=== PATIENT | male | born 1935 | race Caucasian/White ===

== ENCOUNTER 2016-11-30 12:02 | Observation (INO) | payer BC ==
[~2016-11-30] VITALS: Ht 175.3 cm; Wt 90.5 kg
[~2016-11-30 12:02] MED LIST: AGM875 PO; LRT5 PO
[2016-11-30 13:03] VITALS: BP 175/69; PULSE 47; TEMP 36.5; O2SAT 96; BMI 29.0
[2016-11-30] MEDS ORDERED: KEFZOL SPECIAL PROCEDURE STOCK 1 GM ADDVIAL IV ONE (13:04)
[2016-11-30] MEDS ORDERED: SERT50TA PO (13:23)
[2016-11-30] MEDS ORDERED: FLUT0.15 INTNAS (13:23)
[2016-11-30] MEDS ORDERED: LISI20TA3 PO (13:23)
[2016-11-30] MEDS ORDERED: INDO-22 PO (13:23)
[2016-11-30] MEDS ORDERED: TRMCR130WC (13:23)
[2016-11-30] MEDS ORDERED: CLR10 PO (13:23)
[2016-11-30] MEDS ORDERED: SIMV10TA5 PO (13:23)
[2016-11-30] MEDS ORDERED: FELO5TAB PO (13:23)
[2016-11-30] MEDS ORDERED: LDXCR30 (13:24)
[2016-11-30] MEDS ORDERED: [UNRECOGNIZED DRUG - CODE] (13:24)
[2016-11-30] MEDS ORDERED: OMEG10007 PO (13:24)
[2016-11-30] MEDS ORDERED: ASPI81TA28 PO (13:24)
[2016-11-30] MEDS ORDERED: FLUO0.0220 (13:24)
[2016-11-30] MEDS ORDERED: CLBPO15 TOP (13:24)
--- NOTE | 2016-11-30 14:05 | History & Physical Bridge Note ---
H&P Re-Evaluation Bridge Note: I have examined the patient, reviewed the History & Physical and in the interval since the performance of the History & Physical I have noted the following changes of clinical significance: No changes noted
--- NOTE | 2016-11-30 14:06 | Procedure Note ---
Pre-Mod Sedation Assessment General Date of Moderate Sedation: Nov 30, 2016. Vital Signs: Vital Signs Past 12 Hours Date Time Temp Pulse Resp B/P (MAP) Pulse Ox O2 Delivery O2 Flow Rate FiO2 11/30/16 13:03 36.5 47 15 175/69 96 Room Air Review Cardiovascular: no edema, no murmur, + bradycardia Abdomen: soft Lungs: lungs clear Airway Class: II Pre-Sedation Airway Assessment Oral Cavity: WNL Short Thick Neck: No Hx of Sleep Apnea: No Smoking Status: Never Smoker Mallampati Classification: Class II ASA Classification: Class II Procedure Planning Contraindications-for Mod Sed: None Yes Notes The planned sedation has been discussed with the patient and consent obtained. I have identified the patient, determined the appropriateness of sedation and have assessed the patient immediately prior to the procedure. All medicine(s) and interventions are by my order.
[2016-11-30] MEDS ORDERED: LIDOCAINE HCL 1% 20 ML VIAL ONE (14:28)
[2016-11-30] MEDS ORDERED: BUPIVACAINE 0.5 % 5 MG/1 ML MPF 30ML VIAL ONE (14:28)
[2016-11-30] MEDS ORDERED: MIDAZOLAM HCL 5 MG/ML 1 ML VIAL ONE (14:28)
[2016-11-30] MEDS ORDERED: FENTANYL CITRATE INJ 50 MCG/1 ML 2 ML VIAL ONE (14:29)
[2016-11-30] MEDS ORDERED: BACITRACIN 50000 UNIT VIAL ONE (14:29)
[2016-11-30] MEDS ORDERED: HydrALAZINE HCL 20 MG/ML VIAL ONE (14:47)
[2016-11-30 15:06] LABS: HEMATOCRIT 46.8 % (42-52); MEAN CELL VOLUME 96.9 fL (80-100); MEAN CORPUSCULAR HEMOGLOBIN 33.7 pg (25-34); MEAN PLATELET VOLUME 11.4 fL (7.4-10.4); PLATELET COUNT 188 K/uL (130-400); RED BLOOD COUNT 4.83 M/uL (4.7-6.1); WHITE BLOOD COUNT 7.47 K/uL (4.8-10.8)
[2016-11-30 15:35] LABS: BUN/CREATININE RATIO 14.9 (10-20); CALCIUM 8.9 mg/dl (8.5-10.1); CREATININE 0.86 mg/dl (0.60-1.40); MEAN CORPUSCULAR HGB CONC 34.8 g/dl (32-36); POTASSIUM 3.9 mmol/L (3.5-5.1)
--- NOTE | 2016-11-30 15:53 | Discharge Instructions ---
Discharge Instructions Date of Service Nov 30, 2016. Admission Reason for Admission: Heart Block Discharge Discharge Diagnosis / Problem: complete heart block s/p dual chamber permanent pacemaker Discharge Goals Goal(s): Improve function Activity Recommendations Activity Limitations: as noted below Lifting Limitations: no more than 10 pounds (do not lift more than 10 pounds with the left arm for 2 weeks; do not lift the left shoulder over the left arm for 4 weeks) May Resume Sexual Activity: after one week Shower/Bathe: tomorrow Driving or Machine Use: resume 1 day after discharge . Instructions / Follow-Up Instructions / Follow-Up ACTIVITY RECOMMENDATIONS: * Do not raise affected arm over head for 4 weeks. SPECIAL CARE INSTRUCTIONS: * If bleeding occurs, apply direct pressure to area for 5 minutes. * Call your doctor if you have severe pain, fever, drainage or bleeding at site. * Keep dry for 24 hours. * Keep any scheduled doctor's appointment. * Implant Card - hand held device with website information given. SKIN IRRITATION: * You may experience some redness and/or swelling in the area where radiation was administered. If any skin irritation occurs, please contact your family physician. FOLLOW UP VISIT: Keep any scheduled doctor appointments. Current Hospital Diet Patient's current hospital diet: AHA Diet (Heart Healthy) Discharge Diet Recommended Diet: AHA Diet (Heart Healthy) Procedures Procedures Performed: dual chamber rate responsive permanent pacemaker with peripheral venogram Pending Studies Studies pending at discharge: no Medical Emergencies . Who to Call and When: Medical Emergencies: If at any time you feel your situation is an emergency, please call 911 immediately. . Non-Emergent Contact Non-Emergency issues call your: Cap Lining Machine Operator . . "Provider Documentation" section prepared by Emelyn Elias. . Integrated Logistics Support Manager Recommendations Integrated Logistics Support Manager Recommendations Increase felodipine to 7.5 mg daily. Lexiscan nuclear stress test as outpatient. Follow-up for pacemaker and wound check in one week. VTE Core Measure Inpt VTE Proph given/why not?: Treatment not indicated
--- NOTE | 2016-11-30 15:54 | Procedure Note ---
Post-Mod Sedation Assessment General Date of Moderate Sedation Nov 30, 2016. Vital Signs: Vital Signs Past 12 Hours Date Time Temp Pulse Resp B/P (MAP) Pulse Ox O2 Delivery O2 Flow Rate FiO2 11/30/16 15:45 59 18 165/85 (111) 97 Mask 3 11/30/16 13:03 36.5 47 15 175/69 96 Room Air Review - Discharge Criteria Vital Signs Stable: Yes Alert/Oriented/Conversant: Yes Returned to Baseline Mental St: Yes Nausea Absent/Minimal: Yes Pain/Discomfort/Absent/Minimal: Yes Normal/Baseline Respirations: Yes Active Bleeding?: No Pt Received D/C Instructions: N/A Prescriptions Given: None Specific Proced. D/C Criteria Distal Pulses Present (Cardiac: N/A Groin site assessed-Card Cath: N/A Voided Prior To Discharge: N/A Discharged Patients Adult Escort/Transportation: N/A
--- NOTE | 2016-11-30 15:55 | [facility] Post Operative Brief Note ---
Immediate Operative Summary Operative Date Nov 30, 2016. Pre-Operative Diagnosis chb Post-Operative Diagnosis dame Procedure(s) Performed dual chamber rate responsive permanent pacemaker with peripheral venogram Surgeon danny moore Funeral Service Manager Surgeon(s) none Estimated Blood Loss <5cc Findings see official report Fluids (cc crystalloids) 250vv Specimens none Drains none Anesthesia 3mg versed and 75mcg fentanyl Complication(s) None Disposition PCU
--- NOTE | 2016-11-30 15:58 | Discharge Summary ---
Discharge Summary Date of Service Nov 30, 2016. Discharge Summary Admission Date: 11/30/2016 Discharge Date: Dec 01, 2016 Discharge Disposition: Home Principal Diagnosis: complete heart block s/p dual chamber permanent pacemaker Secondary Diagnoses/Problems: snd rbbb lafb htn hld Procedures: dual chamber rate responsive permanent pacemaker with peripheral venogram Medication Reconciliation Continued Medications: Aspirin (Aspirin Ec) 81 Mg Tab 81 MG PO DAILY Clobetasol Propionate (Clobetasol Propionate) 45 Appln/15 Gm Oint 1 APPLN TOP BID for 7 Days, #15 GM Felodipine (Plendil) 5 Mg Tabcr 5 MG PO DAILY, TAB Fish Oil (Plover-3) 1 Ea Cap 1 CAP PO DAILY, CAP Fluocinonide (Lidex 0.05% Cream) 90 Appln/30 Gm Cr Fluorouracil (Topical) (Fluorouracil) 0.5 % Cre Fluticasone Propionate (Nasal) (Flonase Allergy Relief) 50 Mcg/Act Spr 2 SPRY INTNAS DAILY Indomethacin (Indocin) 25 Mg Cap 25 MG PO TID, CAP Ketoconazole (Topical) (Nizoral A-D) 1 % Sha Lisinopril (Prinivil) 20 Mg Tab 20 MG PO DAILY, TAB Loratadine (Claritin) 10 Mg Tab 10 MG PO DAILY, TAB Sertraline (Zoloft) 50 Mg Tab 1 TAB PO DAILY for 30 Days, #30 TAB 2 Refills Simvastatin (Zocor) 10 Mg Tab 1 TAB PO HS for 30 Days, #30 TAB 5 Refills Triamcinolone Acet (Aristocort 0.1%) 90 Appln/30 Gm Cr Admission Information Physical Exam (per Admitting): aaox3, NAD NC/AT, EOMI Supple, No JVD Irregular S1/S2 bradycardic, no murmur CTA B/L no w/r/r soft NT/ND no edema b/l LE No focal deficits skin intact Hospital Course Pt admitted for urgent permanent pacemaker secondary to complete heart block. Underwent procedure without any complications. Monitored overnight. On postoperative day one patient developed chest discomfort after receiving a dose of intravenous hydralazine. Cardiac enzymes were not significantly elevated. A stat resting 2-D transthoracic echo performed at the bedside demonstrated normal wall motion with preserved LV systolic function. There is no evidence of pericardial effusion. Repeat chest x-ray demonstrated stable pacemaker lead placement. No pneumothorax. The patient was observed for an additional night. His symptoms resolved. It came to light during hospitalization at the patient drinks moderate to excessive amounts of alcohol at home. Elevated blood pressure readings were noted likely due to mild withdrawal as well as anxiety. No delirium or tremors. On the day of discharge the patient was feeling well without chest pain or shortness of breath. He will be scheduled for outpatient Lexiscan nuclear stress test. Felodipine increased to 7.5 mg daily. Total time spent on discharge = 45minutes This includes examination of the patient, discharge planning, medication reconciliation, and communication with other providers. Discharge Instructions ACTIVITY RECOMMENDATIONS: * Do not raise affected arm over head for 4 weeks. SPECIAL CARE INSTRUCTIONS: * If bleeding occurs, apply direct pressure to area for 5 minutes. * Call your doctor if you have severe pain, fever, drainage or bleeding at site. * Keep dry for 248 hours. * Keep any scheduled doctor's appointment. * Implant Card - hand held device with website information given. SKIN IRRITATION: * You may experience some redness and/or swelling in the area where radiation was administered. If any skin irritation occurs, please contact your family physician. FOLLOW UP VISIT: Keep any scheduled doctor appointments.
[2016-11-30 16:15] VITALS: BP 163/75; PULSE 62; TEMP 36.3; O2SAT 96; Ht 175.3 cm; Wt 90.5 kg
--- NOTE | 2016-11-30 16:19 | [facility] Operative Report ---
Operative Report Operative Date Nov 30, 2016. Pre-Operative Diagnosis chb Post-Operative Diagnosis dame Procedure(s) Performed dual chamber rate responsive permanent pacemaker with peripheral venogram Surgeon emelyn elias Wood Cutter Surgeon(s) none Estimated Blood Loss <5cc Findings DATE OF OPERATION: 11/30/2016 PREOPERATIVE DIAGNOSIS: Complete heart block, SND POSTOPERATIVE DIAGNOSIS: Complete heart block, SND PROCEDURE: Dual chamber rate responsive permanent pacemaker under fluoroscopic guidance along with peripheral venogram SURGEON: Dr. Emelyn Elias. TEMPORARY STAFF ACCOUNTANT: None. ANESTHESIA: Monitored and a conscious sedation given under my supervision, administered by Diony Lei. Start time 15:06. End time: 15:45. A total of 3 mg of Versed, 75 mcg of fentanyl. INTRAVENOUS FLUIDS: 250 mL. BLOOD LOSS: <10 mL. COMPLICATIONS: None. CONDITION: Stable. URINE OUTPUT: Not available. SPECIMENS: None. FINDINGS: None. DRAINS: None. INDICATIONS: This is an 81-year-old gentleman with past medical history complete heart block, SND, RBBB, LAFB, HTN, HLD. Pt was in our office today for exercise echocardiogram stress test when 1 minute into exercise he went into complete heart block. He was recommend urgent permanent pacemaker today. CONSENT: Consent was obtained prior to the patient going into the electrophysiology lab. The patient was informed of the risks, benefits and alternatives to the procedure. Risks include, but not limited to sudden cardiac , cardiac arrhythmias , cerebrovascular accident, myocardial infarction, injury to the blood vessels, chamber of the heart, lungs, bleeding and infection. The patient understood these risks and agreed to have the procedure as planned. Informed consent was obtained. DESCRIPTION OF THE PROCEDURE: The patient was brought into the electrophysiology lab in fasting state, he was connected to continuous cardiac surgeon. A time-out was performed to ensure the patient identity and procedure correctly. The patient was prepped and draped over the left infraclavicular space in normal surgical standard fashion. He received prophylactic antibiotics prior to incision. Monitored conscious sedation was given throughout the procedure for the patient's comfort level. Lostant precautions were maintained throughout the procedure. A 10 mL of 1% lidocaine and bupivacaine mixture were given in the left deltopectoral groove. Incision was made in the left deltopectoral groove. Blunt dissection was performed then to identify the cephalic vein. However known identified. So a peripheral venogram was performed using 10cc contrast diluted in 10cc of saline followed by a 10cc flush. The axillary vein was identified and venous axis was obtained with needle stick. A guidewire was inserted without any resistance. An 8-Iraqi sheath was inserted over the guidewire without any resistance. The dilator was removed and a second guidewire was inserted through the 8-Iraqi sheath without any resistance. The sheath was removed, flushed and dilator reinserted over it and then the sheath was reinserted over one of the guidewires without any resistance. The guidewire and dilator were removed and the right ventricular pacing lead was advanced into the right ventricle apex under fluoroscopic guidance; there was adequate pacing and sensing thresholds and no diaphragmatic stimulation with high output pacing. The sheath was peeled away and lead was fixated to pectoralis muscle using 0 silk suture. A second 8-Iraqi sheath was advanced over the retained guidewire without any resistance. The guidewire and dilator were removed. The right atrial pacing lead was advanced into the right atrium and positioned the right atrial appendage into the under fluoroscopic guidance. There was adequate pacing and sensing thresholds and no diaphragmatic stimulation with high output pacing. The 8-Iraqi sheath was peeled away and lead was fixated to pectoralis muscle using 0 silk suture. There was back bleeding from the venous puncture site, so a 2-0 Vicryl pursestring was placed around the vein to prevent any further back bleeding. Another 10 mL of 1% lidocaine were given in the pectoralis fascia and then using blunt dissection, then the pectoralis fascia over the pectoralis muscle, a pacemaker pocket was created. The pocket was flushed with copious amounts of bacitracin and saline wash and inspected for hemostasis. The pulse generator was then attached to the leads making sure that the pins were in appropriate position passed the set screws and the set screws were all tightened. The pulse generator was then placed in the pocket, making sure that the leads were lying flat beneath the device and a stay stitch using 0 silk suture was used to secure the device to the pectoralis muscle. Incision was closed in 3-layer fashion using a 2-0 Vicryl interrupted suture followed by 3-0 Vicryl suture followed by a 4-0 Monocryl stitch and then Dermabond was applied. EQUIPMENT: 1. Pulse generator is a [employer] [id number], serial number [id number]. 2. Right atrial lead Medtronic 5076-52 cm, serial number [id number]. 3. Right ventricular lead Medtronic 5076-58 cm, serial number [id number]. INTRAOPERATIVE TESTIN. Right atrial lead: P-wave is 6.9 millivolts, impedance 711 ohms, threshold 0.5 volts at 0.7 milliamps. 2. Right ventricular lead: R-wave is 15.8 millivolts, impedance 864 ohms, threshold 0.4 volts at 0.4 milliamps. FINAL MEASUREMENTS THROUGH THE DEVICE: 1. P-wave is 4.9 millivolts, impedance 589 ohms, threshold 0.5 volts at 0.4 milliseconds. 2. Right ventricular lead: R-wave is 20 millivolts, impedance 665 ohms, threshold 0.5 volts at 0.4 milliseconds. FINAL PARAMETERS: 1. MVP-R 60/130. Right atrial amplitude 3.5 volts, pulse width 0.4 milliseconds, sensitivity 0.3 millivolts. 2. Right ventricular amplitude 3.5 volts, pulse width 0.4 milliseconds, sensitivity 1.2 millivolts. IMPRESSION: Successful implantation of a dual chamber rate responsive permanent pacemaker under fluoroscopic guidance secondary to complete heart block and SND. PLAN: Monitor the patient overnight, 12-lead EKG. His BP is on the high side probably because he did not take his medications today. He is not allowed to lift the left elbow or the left shoulder for 1 month. He cannot lift more than 10 pounds with the left arm for 2 weeks. He can shower tomorrow, let water run over the incision, do not scrub it. He should follow up in our Device Clinic in 7-10 days for device and wound check. Fluids 250vv Specimens none Drains none Anesthesia 3mg versed and 75mcg fentanyl Disposition PCU I attest to the content of the Intraoperative Record and any orders documented therein. Any exceptions are noted below.
[2016-11-30] MEDS: ACETAMINOPHEN 325 MG TAB PO PRN (18:17)
[2016-11-30] MEDS ORDERED: NURSING VERBAL MED ORDER ONE (18:45)
[2016-11-30] MEDS ORDERED: IV FLUIDS COMPLETED PRN (18:45)
[2016-11-30] MEDS ORDERED: HydrALAZINE HCL 20 MG/ML VIAL IV. PRN (19:00)
[2016-11-30] MEDS ORDERED: OXYCODONE/ACETAMINOPHEN 5-325 TAB PO PRN (19:00)
[2016-11-30] MEDS ORDERED: LISINOPRIL 10 MG TAB PO ONE (19:00)
[2016-11-30 19:33] VITALS: BP 161/77; PULSE 67; TEMP 36.2; O2SAT 93
[2016-11-30] MEDS: SIMVASTATIN 10 MG TAB PO SCH (20:58)
[2016-11-30] MEDS ORDERED: INDOMETHACIN 25 MG CAP PO PRN (21:00)
[2016-11-30 23:33] VITALS: BP 138/81; PULSE 60; TEMP 36.8; O2SAT 93
[2016-12-01] VITALS (9 sets, daily range): BP systolic 140–184; BP diastolic 65–83; PULSE 60–76; TEMP 36.5–37.3; O2SAT 93–96
[2016-12-01] MEDS: ACETAMINOPHEN 325 MG TAB PO PRN (03:50)
--- NOTE | 2016-12-01 07:07 | DIAGNOSTIC IMAGING REPORT ---
CHEST 2 VIEWS ROUTINE CLINICAL HISTORY: EXACT TIME ORDERED Evaluate for pneumothorax and lead placement COMPARISON STUDY: No previous studies for comparison. FINDINGS: Permanent bipolar cardiac pacemaker. Leads are in good position. No evidence pneumothorax. Diaphragms are smooth. IMPRESSION: Bipolar cardiac pacemaker good position. No evidence of pneumothorax. The above report was generated using voice recognition software. It may contain grammatical, syntax or spelling errors. Electronically signed by: Duncan Farrell M.D. 12/01/2016 7:05 AM Dictated Date/Time: 12/01/2016 7:05 AM
[2016-12-01] MEDS: LISINOPRIL 20 MG TAB PO SCH (08:05)
[2016-12-01] MEDS: SERTRALINE HCL 50 MG TAB PO SCH (08:06)
[2016-12-01] MEDS: ASPIRIN 81 MG ECTAB PO SCH (08:06)
[2016-12-01] MEDS: LORATADINE 10 MG TAB PO SCH (08:07)
[2016-12-01] MEDS ORDERED: FELODIPINE 5 MG TABCR PO SCH (09:00)
--- NOTE | 2016-12-01 11:29 | Cardiology Follow-Up ---
Subjective General Date of Service: Dec 01, 2016. Pt evaluation today including: conversation w/ patient, conversation w/ family , physical exam, chart review, lab review, review of studies, review of inpatient medication list History of Present Illness The patient is a 81 year old male seen in follow-up. Tolerated procedure without complication. Blood pressure elevated. Denies chest pain or shortness of breath. Atrial paced on telemetry. Normal pacemaker function per interrogation this morning. Allergies Coded Allergies: Hydralazine (Verified Allergy, Severe, GI SYMPTOMS, 12/02/16) chest pain, nausea, htn Social History Smoking Status: Unknown if Ever Smoked Hx Tobacco Use In Past Year?: Yes Hx Alcohol Use - Type And Amou: Yes (1 beer and small amt of whisky/day) Hx Substance Use - Type And Am: No Review of Systems Respiratory: No cough, No sputum, No wheezing, No shortness of breath, No dyspnea on exertion, No dyspnea at rest, No hemoptysis Cardiac: No chest pain, No orthopnea, No PND, No edema, No claudication, No palpitations Physical Exam Vital Signs Last Vital Signs Documentation Date Time Temp Pulse Resp B/P (MAP) Pulse Ox O2 Delivery O2 Flow Rate FiO2 12/01/16 10:29 36.8 60 19 93 Room Air 12/01/16 07:46 184/83 (116) 11/30/16 15:45 3 Physical Exam Head: normocephalic, atraumatic ENMT: normal ENT inspection Neck: supple Lungs: Auscultation: breath sounds normal, no wheezing, no rales/crackles, no rhonchi Cardiovascular: Heart Auscultation: RRR, normal S1, normal S2, no murmurs Peripheral Pulses: Radial Pulse: normal on the right Extremities: no cyanosis, no edema, no clubbing, no ulcers Neurologic: Gait & Station: pertinent finding (no focal motor deficit) Cranial Nerves: grossly intact Assessment and Plan Assessment and Plan Imp: 1. 67-year-old patient admitted with intermittent high degree heart block in the setting of known underlying bifascicular block. Dual chamber pacemaker placed yesterday without complication. Atrial paced on telemetry. 2. HTN - blood pressure elevated Plan/recommendations: Device and wound check in one week. Repeat blood pressure evaluation during that visit. He'll continue current cardiovascular medications as previously ordered. Post pacemaker implant activity restrictions: * Do not raise affected arm over head for 2 weeks. SPECIAL CARE INSTRUCTIONS: * If bleeding occurs, apply direct pressure to area for 5 minutes. * Call your doctor if you have severe pain, fever, drainage or bleeding at site. * Keep dressing on and dry for 48 hours then remove. * Keep any scheduled doctor's appointment. * Implant Card - hand held device with website information given. SKIN IRRITATION: * You may experience some redness and/or swelling in the area where radiation was administered. If any skin irritation occurs, please contact your family physician. Addendum: Called by nursing due to substernal chest pain and headache. Patient received 10 mg of intravenous hydralazine subsequently developed discomfort approximately as 5/10. Also developed significant facial flushing. Stat bedside echo was performed demonstrating normal left ventricular systolic function and wall motion with no significant pericardial effusion. His bedside 12-lead ECG demonstrates a ventricular paced rhythm. He received 2 subungual nitroglycerin with resolution of his chest discomfort. Blood pressure improved to 148/69. Discharge will be canceled. Cardiac enzymes will be trended 3 sets. Suspect hydralazine related adverse reaction. Further recommendations pending clinical course and review of testing. John Tovar D.O., [facility] Laboratory Results Last 24 Hours Test 11/30/16 13:40 White Blood Count 7.47 K/uL Red Blood Count 4.83 M/uL Hemoglobin 16.3 g/dL Hematocrit 46.8 % Mean Corpuscular Volume 96.9 fL Mean Corpuscular Hemoglobin 33.7 pg Mean Corpuscular Hemoglobin Concent 34.8 g/dl RDW Standard Deviation 47.7 fL RDW Coefficient of Variation 13.4 % Platelet Count 188 K/uL Mean Platelet Volume 11.4 fL Sodium Level 143 mmol/L Potassium Level 3.9 mmol/L Chloride Level 108 mmol/L Carbon Dioxide Level 29 mmol/L Anion Gap 6.0 mmol/L Blood Urea Nitrogen 13 mg/dl Creatinine 0.86 mg/dl Est Creatinine Clear Calc Drug Dose 76.4 ml/min Estimated GFR () 94.9 Estimated GFR (Non- 81.9 BUN/Creatinine Ratio 14.9 Random Glucose 81 mg/dl Calcium Level 8.9 mg/dl
[2016-12-01] MEDS ORDERED: MAGNESIUM HYDROXIDE SUSP 30 ML UDC ONE (15:45)
--- NOTE | 2016-12-01 16:13 | DIAGNOSTIC IMAGING REPORT ---
CHEST 2 VIEWS ROUTINE CLINICAL HISTORY: chest, recent PPM implant pain COMPARISON STUDY: 12/01/2016 6:59 AM FINDINGS: Bipolar cardiac pacer remains in good position no evidence pneumothorax. Lungs remain clear. Subtle substernal lucency felt to represent overlap artifact. Degenerative changes thoracic spine IMPRESSION: No acute process. Pacemaker leads in good position The above report was generated using voice recognition software. It may contain grammatical, syntax or spelling errors. Electronically signed by: Duncan Farrell M.D. 12/01/2016 4:12 PM Dictated Date/Time: 12/01/2016 4:09 PM
--- NOTE | 2016-12-01 16:31 | ECHOCARDIOGRAM REPORT ---
*NOTICE TO RECEIVING DEMOCRAT AGENCY This information is strictly Confidential and protected under [place] law. [place] law prohibits you from making any further disclosure of this information unless further disclosure is expressly permitted by the written consent of the person to whom it pertains or is authorized by law. A general authorization for the release of medical or other information is not sufficient for this purpose. Hospital accepts no responsibility if the information is made available to any other person, INCLUDING THE PATIENT. Interpretation Summary * Name: EREN RICHTER Study Date: 12/01/2016 12:12 PM BP: 177/77 mmHg * Patient Location: [facility] HR: 60 * : 1935 (M/d/yyyy) Gender: Male Height: 69 in * Age: 81 yrs Ethnicity: CA Weight: 201 lb * Ordering Physician: Shalom Tovar DO * Performed By: Venice Trinh RDCS * * Reason For Study: Heart block * BSA: 2.1 m2 * The study was technically difficult. * There is no comparison study available. * -- Conclusions -- * Left ventricular systolic function is normal. * Ejection Fraction = 65-70%. * There is moderate concentric left ventricular hypertrophy. * The left ventricular wall motion is normal. * Aortic valve sclerosis mild, without significant aortic valvular stenosis. * There is no pericardial effusion. Procedure Details * A complete two-dimensional transthoracic echocardiogram was performed (2D, M-mode, Doppler and color flow Doppler). Left Ventricle * The left ventricle is normal in size. * There is no thrombus. * There is moderate concentric left ventricular hypertrophy. * Left ventricular systolic function is normal. * Ejection Fraction = 65-70%. * The left ventricular wall motion is normal. Right Ventricle * The right ventricle is normal size. * There is a catheter in the right ventricle. * The right ventricular systolic function is normal as assessed by tricuspid annular plane systolic excursion (TAPSE) (normal >1.5 cm). Atria * The left atrial size is normal. * Right atrium not well visualized. * There is no evidence of atrial septal defect, but resolution does not allow assessment for a patent foramen ovale. Mitral Valve * The mitral valve is normal. * The mitral valve leaflets appear thickened, but open well. * There is no mitral valve stenosis. * Significant mitral regurgitation is absent. Tricuspid Valve * The tricuspid valve is not well visualized. * There is no tricuspid stenosis. * Significant tricuspid regurgitation is absent. Aortic Valve * The aortic valve is trileaflet. * Aortic valve sclerosis mild, without significant aortic valvular stenosis. * Aortic stenosis is absent. * There is no significant aortic regurgitation. Pulmonic Valve * The pulmonary valve is not well seen, but the Doppler examination is normal without significant regurgitation or stenosis. Great Vessels * The aortic root and proximal ascending aorta are normal sized. Pericardium/Pleural * There is no pericardial effusion. Great Vessels * Normal inferior vena cava diameter and respiratory variation suggests normal central venous pressure. Left Ventricular Diastolic Function * Grade I diastolic dysfunction, (abnormal relaxation pattern). MMode 2D Measurements and Calculations IVSd 1.5 cm LVIDd 4.0 cm LVIDs 2.5 cm LVPWd 1.5 cm IVS/LVPW 0.99 FS 36.5 % EDV(Teich) 69.6 ml ESV(Teich) 23.1 ml EF(Teich) 66.9 % EDV(cubed) 63.5 ml ESV(cubed) 16.2 ml EF(cubed) 74.4 % LV mass(C)d 224.1 grams LV mass(C)dI 108.3 grams/m\S\2 SV(Teich) 46.5 ml SI(Teich) 22.5 ml/m\S\2 SV(cubed) 47.3 ml SI(cubed) 22.8 ml/m\S\2 ACS 1.8 cm LA dimension 3.2 cm asc Aorta Diam 3.9 cm LVAd ap4 26.8 cm\S\2 LVLd ap4 7.3 cm EDV(MOD-sp4) 76.7 ml EDV(sp4-el) 83.0 ml LVAs ap4 10.6 cm\S\2 LVLs ap4 5.3 cm ESV(MOD-sp4) 17.8 ml ESV(sp4-el) 17.9 ml EF(MOD-sp4) 76.8 % EF(sp4-el) 78.4 % LVAd ap2 20.8 cm\S\2 LVLd ap2 7.4 cm EDV(MOD-sp2) 49.6 ml EDV(sp2-el) 50.0 ml LVAs ap2 9.0 cm\S\2 LVLs ap2 5.9 cm ESV(MOD-sp2) 12.0 ml ESV(sp2-el) 11.8 ml EF(MOD-sp2) 75.8 % EF(sp2-el) 76.5 % LVLd %diff 0.82 % EDV(MOD-bp) 62.7 ml LVLs %diff 9.1 % ESV(MOD-bp) 15.3 ml EF(MOD-bp) 75.6 % SV(MOD-sp4) 58.9 ml SI(MOD-sp4) 28.5 ml/m\S\2 SV(MOD-sp2) 37.5 ml SI(MOD-sp2) 18.1 ml/m\S\2 SV(MOD-bp) 47.4 ml SI(MOD-bp) 22.9 ml/m\S\2 SV(sp4-el) 65.1 ml SI(sp4-el) 31.5 ml/m\S\2 SV(sp2-el) 38.2 ml SI(sp2-el) 18.5 ml/m\S\2 Doppler Measurements and Calculations MV E max jemma 73.2 cm/sec MV A max jemma 109.1 cm/sec MV E/A 0.67 MV dec time 0.32 sec Ao V2 max 180.5 cm/sec Ao max PG 13.0 mmHg Ao max PG (full) 1.6 mmHg LV V1 max PG 11.4 mmHg LV V1 max 169.1 cm/sec PA V2 max 123.5 cm/sec PA max PG 6.1 mmHg PA acc slope 581.6 cm/sec\S\2 PA acc time 0.13 sec TR max jemma 126.2 cm/sec PA pr(Accel) 22.0 mmHg
[2016-12-01] MEDS ORDERED: MAGNESIUM HYDROXIDE SUSP 30 ML UDC PO PRN (16:45)
[2016-12-01] MEDS: SIMVASTATIN 10 MG TAB PO SCH (20:13)
[2016-12-02 04:30] VITALS: BP 180/73; PULSE 63; TEMP 36.9; O2SAT 92
[2016-12-02 04:55] VITALS: BP 175/78; PULSE 62
[2016-12-02] MEDS: LISINOPRIL 20 MG TAB PO SCH (07:08)
[2016-12-02] MEDS: ASPIRIN 81 MG ECTAB PO SCH (07:35)
[2016-12-02] MEDS: LORATADINE 10 MG TAB PO SCH (07:36)
[2016-12-02] MEDS: SERTRALINE HCL 50 MG TAB PO SCH (07:37)
[2016-12-02 07:49] LABS: HEMATOCRIT 50.4 % (42-52); MEAN CELL VOLUME 96.6 fL (80-100); MEAN CORPUSCULAR HEMOGLOBIN 32.6 pg (25-34); MEAN CORPUSCULAR HGB CONC 33.7 g/dl (32-36); MEAN PLATELET VOLUME 11.4 fL (7.4-10.4); PLATELET COUNT 196 K/uL (130-400); RED BLOOD COUNT 5.22 M/uL (4.7-6.1); WHITE BLOOD COUNT 10.14 K/uL (4.8-10.8)
[2016-12-02 07:58] VITALS: BP 178/72; PULSE 66; TEMP 36.6; O2SAT 92
[2016-12-02 08:12] LABS: PROTHROMBIN TIME (PATIENT) 10.5 SECONDS (9.0-12.0)
[2016-12-02 08:28] LABS: BUN/CREATININE RATIO 14.2 (10-20); CALCIUM 9.5 mg/dl (8.5-10.1); CREATININE 0.95 mg/dl (0.60-1.40)
[2016-12-02] MEDS ORDERED: FELODIPINE 5 MG TABCR PO SCH (09:00)
[2016-12-02] MEDS ORDERED: FELODIPINE 2.5 MG TABCR PO SCH (09:00)
--- NOTE | 2016-12-02 09:20 | Cardiology Follow-Up ---
Subjective General Date of Service: Dec 02, 2016. Pt evaluation today including: conversation w/ patient, conversation w/ family , physical exam, chart review, lab review, review of studies, review of inpatient medication list History of Present Illness The patient is a 81 year old male seen in follow-up. Feeling much better this morning. New information came to light after his son visited him last evening. Apparently, patient consumes moderate to heavy amounts of alcohol on a daily basis. Patient admitted this during examination this morning. No recurrent chest discomfort or unusual shortness of breath. He is ventricular paced on telemetry. Requesting discharge if possible. Results of testing performed yesterday including echocardiogram, x-ray, and cardiac enzymes were unremarkable. Allergies Coded Allergies: Hydralazine (Verified Allergy, Severe, GI SYMPTOMS, 12/02/16) chest pain, nausea, htn Social History Smoking Status: Unknown if Ever Smoked Hx Tobacco Use In Past Year?: Yes Hx Alcohol Use - Type And Amou: Yes (1 beer and small amt of whisky/day) Hx Substance Use - Type And Am: No Review of Systems Respiratory: No cough, No sputum, No wheezing, No shortness of breath, No dyspnea at rest, No hemoptysis Cardiac: No chest pain, No orthopnea, No PND, No edema, No palpitations Physical Exam Vital Signs Last Vital Signs Documentation Date Time Temp Pulse Resp B/P (MAP) Pulse Ox O2 Delivery O2 Flow Rate FiO2 12/02/16 08:02 Room Air 12/02/16 07:58 36.6 66 18 178/72 (107) 92 12/01/16 12:05 3.0 Physical Exam Constitutional: Level of Distress: NAD Head: normocephalic, atraumatic ENMT: normal ENT inspection Neck: supple Lungs: Auscultation: breath sounds normal, no wheezing, no rales/crackles, no rhonchi Cardiovascular: Heart Auscultation: RRR, normal S1, normal S2, no murmurs Peripheral Pulses: Radial Pulse: normal on the right Extremities: no cyanosis, no edema, no clubbing, no ulcers Neurologic: Gait & Station: pertinent finding (no focal motor deficit) Cranial Nerves: grossly intact Assessment and Plan Assessment and Plan Imp: 1. 67-year-old patient admitted with intermittent high degree heart block in the setting of known underlying bifascicular block. 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 Currently ventricular paced on telemetry. 2. Transient chest discomfort secondary to intravenous hydralazine. Cardiac enzymes negative. Resting 2-D transthoracic echo performed at the bedside during episode of chest discomfort demonstrate a normal wall motion. 3. HTN -elevated blood pressure exacerbated by anxiety 4. History of moderate to heavy alcohol intake Plan/recommendations: Hydralazine will be added to patient's allergy list. I had a long discussion with the patient regarding his transient chest discomfort and subsequent cardiac evaluation. There is no evidence of acute coronary syndrome at this time. His symptoms have resolved and he is feeling much better this morning. He is anxious for discharge. I'm recommending a Lexiscan nuclear stress test be performed in the outpatient setting. I offered inpatient testing, however, patient declines at this time. Device and wound check in one week. Felodipine increased to 7.5 mg daily. He'll continue other cardiovascular medications as previously ordered. I will arrange for cardiology follow-up in 2-4 weeks. Post pacemaker implant activity restrictions: * Do not raise affected arm over head for 2 weeks. SPECIAL CARE INSTRUCTIONS: * If bleeding occurs, apply direct pressure to area for 5 minutes. * Call your doctor if you have severe pain, fever, drainage or bleeding at site. * Keep dressing on and dry for 48 hours then remove. * Keep any scheduled doctor's appointment. * Implant Card - hand held device with website information given. SKIN IRRITATION: * You may experience some redness and/or swelling in the area where radiation was administered. If any skin irritation occurs, please contact your family physician. Laboratory Results Last 24 Hours Test 12/01/16 15:53 12/01/16 20:08 12/01/16 23:25 12/02/16 07:01 Troponin I 0.037 ng/ml 0.032 ng/ml 0.027 ng/ml White Blood Count 10.14 K/uL Red Blood Count 5.22 M/uL Hemoglobin 17.0 g/dL Hematocrit 50.4 % Mean Corpuscular Volume 96.6 fL Mean Corpuscular Hemoglobin 32.6 pg Mean Corpuscular Hemoglobin Concent 33.7 g/dl RDW Standard Deviation 48.8 fL RDW Coefficient of Variation 13.6 % Platelet Count 196 K/uL Mean Platelet Volume 11.4 fL Prothrombin Time 10.5 SECONDS Prothromb Time International Ratio 1.0 Sodium Level 140 mmol/L Potassium Level 4.0 mmol/L Chloride Level 107 mmol/L Carbon Dioxide Level 23 mmol/L Anion Gap 10.0 mmol/L Blood Urea Nitrogen 14 mg/dl Creatinine 0.95 mg/dl Est Creatinine Clear Calc Drug Dose 69.0 ml/min Estimated GFR () 87.3 Estimated GFR (Non- 75.3 BUN/Creatinine Ratio 14.2 Random Glucose 98 mg/dl Calcium Level 9.5 mg/dl
[2016-12-02 09:32] VITALS: BP 178/72; PULSE 66; TEMP 36.6; O2SAT 92
== END 2016-12-02 10:02 | disposition home or self-care (01) ==
LOC: C.ACU 12:02 → ENRESERV 15:35 → C.2T 15:51
PROVIDERS: ADMIT Internal Medicine; ATTEND Internal Medicine
DX: I44.2 Atrioventricular block, complete (principal); I10 Essential (primary) hypertension; I45.10 Unspecified right bundle-branch block; E78.5 Hyperlipidemia, unspecified; Z79.82 Long term (current) use of aspirin

== ENCOUNTER → 2016-12-27 | Day surgery (SDC) | payer BC ==
[~2016-12-27] VITALS: Ht 175.3 cm; Wt 91.0 kg
[~2016-12-27] MED LIST changes: +ACETAMINOPHEN 325 MG TAB PO PRN; -AGM875 PO; +ASPI81TA28 PO; +ATROPINE SULFATE 0.1 MG/ML 5ML SYR IV PRN; +CLBPO15 TOP; +CLR10 PO; +DC ALL ANTICOAGULANTS ONE; +FELO2.5T PO; +FELO5TAB PO; +FENTANYL CITRATE INJ 50 MCG/1 ML 2 ML VIAL ONE; +FLUO0.0220; +FLUT0.15 INTNAS; +HEPARIN SOD (PORCINE) 1000 UNIT/ML 10 ML VIAL ONE; +INDO-22 PO; +KETO2SHA5 TOP; +LDXCR30; +LDXCR30 TOP; +LISI20TA3 PO; -LRT5 PO; +METO25TA3 PO; +MIDAZOLAM HCL 1 MG/ML 2ML VIAL ONE; +NITROGLYCERIN/D5W 100MCG/ML 20ML SYR ONE; +NiCARDipine HCL INJ 2.5 MG/ML 10 ML AMP ONE; +OMEG10007 PO; +ONDANSETRON INJ 2 MG/ML 2 ML VIAL IV PRN; +SERT50TA PO; +SIMV10TA5 PO; +SODIUM CHLORIDE 0.9% 1000ML 1,000 ML IV SCH; +SODIUM CHLORIDE 0.9% 1000ML 250 ML IV PRN; +TRMCR130WC TOP; +[UNRECOGNIZED DRUG - CODE]
[2016-12-27 07:19] VITALS: Ht 175.3 cm; Wt 91.0 kg
[2016-12-27 07:23] VITALS: BP 177/94; PULSE 59; TEMP 36.5; O2SAT 95
--- NOTE | 2016-12-27 09:06 | Procedure Note ---
Pre-Mod Sedation Assessment General Date of Moderate Sedation: Dec 27, 2016. Start: 8:36AM Vital Signs: Vital Signs Past 12 Hours Date Time Temp Pulse Resp B/P (MAP) Pulse Ox O2 Delivery O2 Flow Rate FiO2 12/27/16 08:53 60 16 153/68 (96) 94 Mask 6 12/27/16 07:23 36.5 59 20 177/94 95 Room Air Review Cardiovascular: regular rate, rhythm, no murmur Abdomen: normal bowel sounds, non tender, soft Lungs: chest non-tender, lungs clear, normal breath sounds Airway Class: I Pre-Sedation Airway Assessment Oral Cavity: Dental Abnormalities Able to Visualize Vocal Cords: No Short Thick Neck: Yes Hx of Sleep Apnea: No Smoking Status: Former Smoker Mallampati Classification: Class I (Sft palate,uvula,fauces,pillar) ASA Classification: Class I Procedure Planning Contraindications-for Mod Sed: None Yes Notes The planned sedation has been discussed with the patient and consent obtained. I have identified the patient, determined the appropriateness of sedation and have assessed the patient immediately prior to the procedure. All medicine(s) and interventions are by my order.
--- NOTE | 2016-12-27 09:07 | Procedure Note ---
Post-Mod Sedation Assessment General Date of Moderate Sedation Dec 27, 2016. Stop: 8:53 AM Vital Signs: Vital Signs Past 12 Hours Date Time Temp Pulse Resp B/P (MAP) Pulse Ox O2 Delivery O2 Flow Rate FiO2 12/27/16 08:53 60 16 153/68 (96) 94 Mask 6 12/27/16 07:23 36.5 59 20 177/94 95 Room Air Review - Discharge Criteria Vital Signs Stable: Yes Alert/Oriented/Conversant: Yes Returned to Baseline Mental St: Yes Nausea Absent/Minimal: Yes Pain/Discomfort/Absent/Minimal: Yes Normal/Baseline Respirations: Yes Active Bleeding?: No Pt Received D/C Instructions: Yes Prescriptions Given: None Specific Proced. D/C Criteria Distal Pulses Present (Cardiac: Yes Groin site assessed-Card Cath: Yes Voided Prior To Discharge: Yes Discharged Patients Adult Escort/Transportation: Yes
--- NOTE | 2016-12-27 09:12 | Cardiac Catheterization ---
Procedure Note Procedure Date Dec 27, 2016. Pre-Procedure Diagnosis Angina, Positive Stress Test AUC Score 7 Post-Procedure Diagnosis Mild CAD Procedure(s) Performed Coronary Angiography Stacker And Sorter Operator Dr. 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 ACC Data Cardiac Status Clinical evaluation leading to the procedure CAD Presntation: Positive Stress Test Anginal Classification: CCS II Heart Failure: No Cardiogenic Shock w/in 24Hrs: No Cardiac Arrest w/in 24Hrs: No Imaging studies past 6 months: Yes Stress studies past 6 months: Yes Standard Exercise Stress Test: No Stress Echocardiogram: No Stress Testing w/SPECT MPI: Yes - Positive Cardiac CTA: No Coronary Anatomy Dominant: Right Left Main (% Stenosis): Ostial (10) LAD (% Stenosis): Distal (20) Circumflex (% Stenosis): Normal RCA (% Stenosis): Normal Diagnostic Status: Elective Closure Device Percutaneous Entry Location: Radial Closure Device: Radial Band Recommendations: Medical therapy and/or Counseling
--- NOTE | 2016-12-27 09:14 | Discharge Instructions ---
Discharge Instructions Procedure Procedure Date: Dec 27, 2016. Reason for Visit: Positive Nuclear Stress TestRatna To Do. Discharge Discharge Date: Dec 27, 2016. Discharge Diagnosis: minor CAD Last Recorded Wt (Kilograms): 91 Anesthesia Post Anesthesia Instructions: If you have had General Anesthesia or IV Sedation: * Do not drive today. * Resume driving when surgeon permits. * Do not make important decisions or sign legal documents today. * Call surgeon for: 1. Temperature elevations greater than 101 degrees F. 2. Uncontrollable pain. 3. Excessive bleeding. 4. Persistent nausea and vomiting. 5. Medication intolerance (nausea, vomiting or rash). * For nausea and vomiting use only clear liquids such as: tea, soda, bouillon until nausea subsides, then gradually increase diet as tolerated. * If you have any concerns or questions, call your surgeon's office. If physician is unavailable and it is an emergency, call 911 or go to the nearest emergency room. Instructions Activity Recommendations: limitations Recommended Home Diet: resume previous diet Allergies: Coded Allergies: Hydralazine (Verified Allergy, Severe, GI SYMPTOMS, 12/02/16) chest pain, nausea, htn Provider Instructions ACTIVITY RECOMMENDATIONS: Excess manipulation of the wrist should be avoided for the next 24-48 hours. * No lifting over 2 pounds (approximately a 1/2 gallon of milk) with the utilized arm for 24 hours. * No strenuous activity such as bowling or tennis for 3 days. * Keep the site of the procedure covered with a bandage for 24 hours. *You may shower the day after the procedure. Do not take a tub bath or submerge the puncture site in water for the next 3 days. *Do not operate any motorized equipment for 3 days. SPECIAL CARE INSTRUCTIONS: The site may be slightly bruised and sore following your procedure. Should any of the following occur, contact the Dr. who performed your procedure. 1. Redness/inflammation, swelling, chills, or fever, or colored drainage at procedure site within 3-7 days after your procedure. 2. Coldness, discoloration, ongoing numbness, severe pain, or swelling. Expect mild tingling of hand and tenderness at the puncture site for up to three days. If this persists beyond three days, or other symptoms develop, notify the Dr. who performed your procedure. BLEEDING: If the procedure site on your wrist begins to bleed, do not panic 1. Place 1 or 2 fingers firmly just slightly above the insertion site to stop the bleeding. You may be able to feel your pulse as you hold pressure. 2. Lift your finger after 5 minutes to see if the bleeding has stopped. 3. Once the bleeding has stopped, gently wipe the wrist area clean with a bandage. * If the bleeding from your wrist does not stop after 10 minutes, or if there is a large amount of bleeding or spurting, call 911 ([address] drive yourself to the hospital). SKIN IRRITATION: * You may experience some redness and/or swelling in the area where radiation was administered. If any skin irritation occurs, please contact your family physician. FOLLOW UP VISIT: Keep any scheduled doctor appointments. Follow Up Follow-up with: Follow-up as previously scheduled with Dr. Barron Qureshi Recommendations: Call your doctor if: * Temperature above 101 degrees * Pain not relieved by pain medicine ordered * There is increased drainage or redness from any incision * You have any unanswered questions or concerns. Your Doctors Instructions noted above were prepared by provider Pa Segundo. Patient Signature Section: Patient Instructions Signature Page Erik Reddy Patient (or Guardian) Signature/Date: I have read and understand the instructions given to me by my caregivers. Caregiver/RN/Doctor Signature/Date: The above-named patient and/or guardian has received patient instructions on this date. + Original Patient Signature Page (only) stays with chart. Please make copy for patient.
[2016-12-27 11:30] VITALS: BP 175/80; PULSE 62; O2SAT 95
== END | disposition home or self-care (01) ==
LOC: C.CATH 06:39
PROVIDERS: ATTEND Internal Medicine Interventional Cardiology
DX: I25.10 Atherosclerotic heart disease of native coronary artery without angina pectoris (principal); I10 Essential (primary) hypertension; Z95.0 Presence of cardiac pacemaker; Z79.82 Long term (current) use of aspirin

== ENCOUNTER 2021-11-18 12:38 | Observation (INO) ==
[2021-11-18 13:15] LABS: Basophils # (auto) 0.04 K/uL (0-0.2); Basophils % (auto) 0.6 %; Eosinophils # (auto) 0.12 K/uL (0-0.5); Eosinophils % (auto) 1.7 %; Hematocrit (blood only) 47.6 % (42-52); Hemoglobin 16.7 g/dL (14.0-18.0); Immature Granulocytes # (auto) 0.02 K/uL (0.00-0.02); Immature Granulocytes % (auto) 0.3 %; Lymphocytes # (auto) 2.25 K/uL (1.2-3.4); Lymphocytes % (auto) 31.3 %; Mean Corpuscular Hemoglobin 34.8 pg (25-34); Mean Corpuscular Hgb Conc 35.1 g/dL (32-36); Mean Corpuscular Volume 99.2 fL (80-100); Mean Platelet Volume 11.5 fL (7.4-10.4); Monocytes % (auto) 8.3 %; Neutrophils # (auto) 4.17 K/uL (1.4-6.5); Neutrophils % (auto) 57.8 %; Platelet Count 175 K/uL (130-400); RDW Coefficient of Variation 13.5 % (11.5-14.5); RDW Standard Deviation 48.9 fL (36.4-46.3)
--- NOTE | 2021-11-18 13:25 | XRay Report ---
XR hip RT min 2V CLINICAL HISTORY: right hip pain, fall TECHNIQUE: 2 views of the right hip and single frontal view of the pelvis were obtained. Comparison: Comparison is made to pelvic radiograph 11/05/2008 FINDINGS: There is no evidence of an acute fracture. Degenerative changes are seen in the hip joint. Vascular c alcifications are noted. IMPRESSION: No evidence of acute osseous injury. ACT 112: Negative or not required by law. Electronically signed by: Noel Merritt M.D. 11/18/2021 1:23 PM
[2021-11-18 13:31] LABS: Partial Thromboplastin Time 26.6 Seconds (21.0-31.0); Prothrombin Time 10.8 Seconds (9.0-12.0)
[2021-11-18 13:35] LABS: Alanine Aminotransferase 14 U/L (7-52); Albumin Level 4.3 gm/dl (3.4-5.0); Alkaline Phosphatase 78 U/L (34-104); Anion Gap 8 (3-11); BUN Creatinine Ratio 21.1 (10-20); Bilirubin,Total 0.8 mg/dl (0.2-1.0); Blood Urea Nitrogen 16 mg/dl (6-23); Calcium 9.6 mg/dl (8.5-10.1); Est GFR (African American) 96.4 ml/min; Est GFR (Non-African American) 83.2 ml/min; Globulin 4.2 gm/dl (2.5-4.0); Glucose 95 mg/dl (70-99(Fasting)); Sodium 139 mmol/L (136-145); Total Protein 8.5 gm/dl (6.0-8.3)
[2021-11-18 13:36] LABS: Carbon Dioxide 26 mmol/L (21-32); Chloride 105 mmol/L (98-107)
--- NOTE | 2021-11-18 13:41 | CT Scan Report ---
CT head/brain wo con CLINICAL HISTORY: fall Technique: Contiguous axial CT images of the head were acquired from the base of the skull to the may jaguar without intravenous contrast administration. Images were viewed in brain, subdural and [facility]. Automated dose lowering techniques and/or adjustment according to patient size were utilized for this exam. Comparison: None available at the time of this dictation. Findings: Areas of decreased attenuation are present in the periventricular and subcortical white matter bilate rally consistent with small vessel ischemic disease. Generalized cerebral atrophy with commensurate e nlargement of the ventricles, sulci, and cisterns is also present. There is no acute intracranial hem orrhage or evidence of acute territorial infarction. No shift of the midline structures, mass effect, or extra-axial abnormalities are shown. Atherosclerotic calcifications are present in the intracran ial segments of the internal carotid arteries. Imaged portions of the paranasal sinuses and mastoid air cells are clear. The orbits appear normal. There are no acute fractures of the calvaria or scalp swelling. Impression: No acute intracranial hemorrhage, no evidence of acute territorial infarction or other acute intracra nial disease process. ACT 112: Negative or not required by law. Electronically signed by: Noel Merritt M.D. 11/18/2021 1:40 PM
--- NOTE | 2021-11-18 13:53 | Emergency Department Note ---
ED Visit Note I have personally evaluated this patient examined him and reviewed the pertinent labs and data. I have discussed the case with Agata Cat, the physician manufacturing assistant and agree with the plan. Please refer to the PA note. This Patient comes in with several falls. It does not sound like he has had any prolonged downtime to suggest rhabdo. He has a lot of pain along the right hip. He also says he is just feeling generally weak and off balance. My exam, his hip is tender and we try to get him up and he cannot walk. X-rays of the hip are unremarkable. we are going to do CAT scans as well and do a cardiac work-up given his history. He will need to be admitted for further treatment and evaluation. .
[2021-11-18 14:19] LABS: Appearance Urine Clear (Clear); Bacteria Urine Automated Negative (Negative); Bilirubin Urine Negative (Negative); Blood Urine 1+ (Negative); Cast Urine Automated 0 /lpf (0-5); Color Urine Yellow; Glucose Urine UA Negative (Negative); Ketones Urine Trace (Negative); Leukocyte Esterase Urine Negative (Negative); Nitrite Urine Negative (Negative); Protein Urine Trace (Negative); Specific Gravity Urine 1.016 (1.000-1.030); Urobilinogen Urine Negative (Negative); pH Urine 6.5 (4.5-7.5)
[2021-11-18] MEDS ORDERED: FELODIPINE 2.5 MG TABCR PO STA (14:26)
[2021-11-18] MEDS ORDERED: LOSARTAN POTASSIUM 50 MG TAB PO STA (14:26)
--- NOTE | 2021-11-18 14:36 | CT Scan Report ---
CT hip RT wo con, CT lumbar spine wo con CLINICAL HISTORY: right hip pain, ambulatory dysfunction TECHNIQUE: Multidetector row helical CT of the right knee right hip and lumbar spine was performed wi thout intravenous contrast. Coronal and sagittal reformations were obtained. Automated dose lowering techniques and/or adjustment according to patient size were utilized for this examination. CT DOSE: 1155.11 mGy.cm Comparison: None available at the time of this dictation. FINDINGS: No acute fracture is seen. Multilevel degenerative changes are seen in the spine with loss of height at the cement arthroplasty noted in L1 and L2. There is leakage of cement about the L1 arthroplasty w ith extrusion into the adjacent disc spaces. Degenerative changes are seen in the hip joint. No joint effusion is seen. Extensive atherosclerotic changes are seen. IMPRESSION: No evidence of acute fracture or dislocation. ACT 112: Negative or not required by law. Electronically signed by: Noel Merritt M.D. 11/18/2021 2:34 PM
--- NOTE | 2021-11-18 15:22 | History & Physical Report ---
Date of Service November 18, 2021 Assessment & Plan (1) Acute right hip pain: Plan: Sequelae of falling and ambulatory dysfunction. No evidence of fracture. PT/OT. Ibuprofen and ICE. (2) Hypertensive urgency: Plan: Situation/pain/alcohol use all likely contributing. Pt has a prior severe reaction to hydralazine. Gave labetalol in ER with resulting BP at 630p and rechecked again at 8:30p 153/63. Cont current medical therapy and monitor on telemetry. (3) Recurrent falls: Plan: Uncertain exact etiology, likely multifactorial including high daily intake of alcohol, multiple medical problems, age-related decline and general physical deconditioning as a sequelae of previous falls. (4) Alcohol abuse: Plan: Daily drinker of whisky and beer. No current evidence of withdrawal. Monitor closely. Daily thiamine and folate. (5) Tobacco use: Plan: chews tobacco-declines nicotine patch. (6) DVT prophylaxis: Plan: Lovenox Full Code as confirmed with he and his who was present at bedside on admission. Dispo-to med/tele Brianna Augustine DO [facility] Hospitalist History of Present Illness Chief Complaint: fall at home, unable to walk Primary Care Provider: Huy Wong DO 86 yo M presents with recurrent falls at home and subsequent R hip pain. He is unable to stand or walk today. R hip CT and L spine xrays reveal no acute fracture. Has been falling recurrently for two years intermittently Last night was trying to get up and go to the bathroom, but couldn't move right leg and fell as a result. Mechanical fall reported with no loss of consciousne ss. Right leg started with more pain and can't use it two weeks ago when he fell twice. That seemed to be when his functional status got worse. has been caring for him but is overwhelmed with care needs. Hasn't been able to get around much in the last two weeks. Has been taking ibuprofen for pain. Allergies Allergy/AdvReac Type Severity Reaction Status Date / Time hydralazine Allergy Severe GI SYMPTOMS Verified 11/18/21 16:15 Home Medications Medication Instructions Recorded Confirmed Type aspirin 81 mg tablet,delayed 81 mg PO DAILY 11/18/21 11/18/21 History release cholecalciferol (vitamin D3) 25 25 mcg PO DAILY 11/18/21 11/18/21 History mcg (1,000 unit) capsule felodipine 2.5 mg tablet,extended 2.5 mg PO DAILY 11/18/21 11/18/21 History release 24 hr fexofenadine 180 mg tablet 180 mg PO DAILY 11/18/21 11/18/21 History fluticasone propionate 50 2 spray INTRANASAL DAILY 11/18/21 11/18/21 History mcg/actuation nasal spray,suspension (Flonase Allergy Relief) indomethacin 25 mg capsule 25 mg PO TID PRN 11/18/21 11/18/21 History isosorbide mononitrate 60 mg 60 mg PO DAILY 11/18/21 11/18/21 History tablet,extended release 24 hr losartan 50 mg tablet 50 mg PO DAILY 11/18/21 11/18/21 History nitroglycerin 0.4 mg sublingual 0.4 mg SUBLINGUAL .PRN/UD 11/18/21 11/18/21 History tablet omega-3 fatty acids 1,000 mg PO DAILY 11/18/21 11/18/21 History sertraline 100 mg tablet 200 mg PO QAM 11/18/21 11/18/21 History simvastatin 10 mg tablet 10 mg PO HS 11/18/21 11/18/21 History Past Med/Surg History Medical History Adjustment disorder Ambulatory dysfunction Cardiac pacemaker in situ CHB (complete heart block) Chronic sinusitis Dyslipidemia Gout History of nonmelanoma skin cancer HTN (hypertension) LAFB (left anterior fascicular block) Obesity Psoriasis RBBB Surgical History H/O cataract removal with insertion of prosthetic lens S/P cardiac pacemaker procedure S/P exploratory laparotomy Family History Father Coronary heart disease Sister Cerebral aneurysm Social History Smoking Status: Former smoker Tobacco Type: Smokeless Tobacco (Dip or Chew) Do You Dip or Chew Tobacco: Yes; Hx Alcohol Use: Yes Alcohol type: beer and hard liquor Alcohol Intake Frequency: 4 or More x per/Week Alcohol Intake Frequency Comment: nightly 1 beer and a couple of whiskys Hx Substance Use: No Preferred Language: Chinese Communication Ability: Effective Digital Account Manager Required: No Beliefs That Will Affect Care: None Current Living Situation: Spouse Other Information That Helps Us Care for You: No Feels Safe at Home: Yes Safety Concerns: Feels Safe At This Time Assistive Devices: Cane and Glasses Assistive Devices Comment: hearing aids at home - no longer uses. Review of Systems Review of Systems: All systems were reviewed and negative except as indicated above in HPI. Physical Exam Physical Exam: CONSTITUTIONAL: WNWD, vitals as above, generally well- appearing, NAD EYES: pupils are round and equal bilaterally, normal conjunctivae, no scleral icterus ENT: external ear and nose normal, MMM NECK: trachea midline, RESPIRATORY: clear to auscultation bilaterally, no crackles, rales or wheezes, normal respiratory effort CARDIOVASCULAR: regular rate and rhythm, S1 and 2 heard without murmurs, gallops or rubs, no JVD, no peripheral edema CHEST: +pacemaker in left anterior chest GASTROINTESTINAL: soft, nontender, ND, no guarding MUSCULOSKELETAL: strength 5/5 throughout, Right knee is painful with flexion and there is point TTP on the lateral side. There is point tenderness also on lateral right hip and patient cannot stand. Head Nc/AT SKIN: warm and dry NEUROLOGIC: patellar DTRs 2+ bilat. PERRL, EOMI, no facial palsy, no dysarthria. Touch, pain and proprioception normal. CN 2-12 grossly intact, no sensory deficit, normal cognition, normal speech, no tremor PSYCHIATRIC: alert cooperative and oriented to person, place and time. Euthymic mood, makes good eye contact, language grossly intact, recent and remote memory grossly intact. Results & Data Results & Data ([facility]) Vital Signs (Past 12 Hours) Vital Signs Temp Pulse Pulse Resp BP BP Pulse Ox 11/18/21 14:24 60 20 183/101 H 97 11/18/21 12:25 36.8 C 88 20 213/116 H 98 Laboratory Results Short CBC 11/18/21 Range/Units 12:54 WBC 7.20 (4.8-10.8) K/uL Hgb 16.7 (14.0-18.0) g/dL Hct 47.6 (42-52) % Plt Count 175 (130-400) K/uL BMP 11/18/21 11/18/21 11/18/21 12:54 14:20 15:23 Sodium 139 Potassium TNP Cancelled 4.0 Chloride 105 Carbon Dioxide 26 BUN 16 Creatinine 0.76 Glucose 95 Calcium 9.6 Liver Function 11/18/21 11/18/21 11/18/21 Range/Units 12:54 14:20 15:23 Total Bilirubin 0.8 (0.2-1.0) mg/dl AST TNP Cancelled 14 ALT 14 (7-52) U/L Alkaline Phosphatase 78 (34-104) U/L Albumin 4.3 (3.4-5.0) gm/dl Urine 11/18/21 Range/Units 13:50 Urine Color Yellow Urine Appearance Clear (Clear) Urine pH 6.5 (4.5-7.5) Ur Specific [place] 1.016 (1.000-1.030) Urine Protein Trace H (Negative) Urine Glucose (UA) Negative (Negative) Diagnostic Findings Head CT 11/18/21 12:48 CT head/brain wo con CLINICAL HISTORY: fall Technique: Contiguous axial CT images of the head were acquired from the base of the skull to the vertex without intravenous contrast administration. Images were viewed in brain, subdural and bone windows. Automated dose lowering techniques and/or adjustment according to patient size were utilized for this exam. Comparison: None available at the time of this dictation. Findings: Areas of decreased attenuation are present in the periventricular and subcortical white matter bilaterally consistent with small vessel ischemic disease. Generalized cerebral atrophy with commensurate enlargement of the ventricles, sulci, and cisterns is also present. There is no acute intracranial hemorrhage or evidence of acute territorial infarction. No shift of the midline structures, mass effect, or extra-axial abnormalities are shown. Atherosclerotic calcifications are present in the intracranial segments of the internal carotid arteries. Imaged portions of the paranasal sinuses and mastoid air cells are clear. The orbits appear normal. There are no acute fractures of the calvaria or scalp swelling. Impression: No acute intracranial hemorrhage, no evidence of acute territorial infarction or other acute intracranial disease process. ACT 112: Negative or not required by law. Electronically signed by: Noel Merritt M.D. 11/18/2021 1:40 PM Hip X-Ray 11/18/21 12:48 XR hip RT min 2V CLINICAL HISTORY: right hip pain, fall TECHNIQUE: 2 views of the right hip and single frontal view of the pelvis were obtained. Comparison: Comparison is made to pelvic radiograph 11/05/2008 FINDINGS: There is no evidence of an acute fracture. Degenerative changes are seen in the hip joint. Vascular calcifications are noted. IMPRESSION: No evidence of acute osseous injury. ACT 112: Negative or not required by law. Electronically signed by: Noel Merritt M.D. 11/18/2021 1:[address] 11/18/21 13:45 CT hip RT wo con, CT lumbar spine wo con CLINICAL HISTORY: right hip pain, ambulatory dysfunction TECHNIQUE: Multidetector row helical CT of the right knee right hip and lumbar spine was performed without intravenous contrast. Coronal and sagittal reformations were obtained. Automated dose lowering techniques and/or adjustment according to patient size were utilized for this examination. CT DOSE: 1155.11 mGy.cm Comparison: None available at the time of this dictation. FINDINGS: No acute fracture is seen. Multilevel degenerative changes are seen in the spine with loss of height at the cement arthroplasty noted in L1 and L2. There is leakage of cement about the L1 arthroplasty with extrusion into the adjacent disc spaces. Degenerative changes are seen in the hip joint. No joint effusion is seen. Extensive atherosclerotic changes are seen. IMPRESSION: No evidence of acute fracture or dislocation. ACT 112: Negative or not required by law. Electronically signed by: Noel Merritt M.D. 11/18/2021 2:[address] 11/18/21 13:45 CT hip RT wo con, CT lumbar spine wo con CLINICAL HISTORY: right hip pain, ambulatory dysfunction TECHNIQUE: Multidetector row helical CT of the right knee right hip and lumbar spine was performed without intravenous contrast. Coronal and sagittal reformations were obtained. Automated dose lowering techniques and/or adjustment according to patient size were utilized for this examination. CT DOSE: 1155.11 mGy.cm Comparison: None available at the time of this dictation. FINDINGS: No acute fracture is seen. Multilevel degenerative changes are seen in the spine with loss of height at the cement arthroplasty noted in L1 and L2. There is leakage of cement about the L1 arthroplasty with extrusion into the adjacent disc spaces. Degenerative changes are seen in the hip joint. No joint effusion is seen. Extensive atherosclerotic changes are seen. IMPRESSION: No evidence of acute fracture or dislocation. ACT 112: Negative or not required by law. Electronically signed by: Noel Merritt M.D. 11/18/2021 2:34 PM Code Status & VTE Plan VTE Prophylaxis Plan VTE Prophylaxis will be ordered: Yes
[2021-11-18 16:00] LABS: Troponin I High Sensitivity 10.1 pg/ml (0-20)
[2021-11-18] MEDS ORDERED: LABETALOL HCL IV 5 MG/ML 20ML IV STA (16:15)
--- NOTE | 2021-11-18 16:43 | Emergency Department Note ---
History of Present Illness General Chief complaint: Hip Pain Stated complaint: fell days ago, hip pain Time Seen by Provider: 11/18/21 12:41 Source: patient Mode of arrival: ambulatory Limitations: no limitations History of Present Illness Maximum Pain Intensity: 4 This patient is an 86-year-old male who presents to the emergency department for evaluation of recurrent falls. Patient fell about 1 week ago several times and since then has been having right hip pain. He is unable to walk or stand at all. His and neighbors help him to get around the house. Patient reports mechanical falls and denies getting lightheaded or dizzy. Patient takes ibuprofen for his pain. Patient is unsure if he hit his head. Home Medications Medication Instructions Recorded Confirmed Type aspirin 81 mg tablet,delayed 81 mg PO DAILY 11/18/21 11/18/21 History release cholecalciferol (vitamin D3) 25 25 mcg PO DAILY 11/18/21 11/18/21 History mcg (1,000 unit) capsule felodipine 2.5 mg tablet,extended 2.5 mg PO DAILY 11/18/21 11/18/21 History release 24 hr fexofenadine 180 mg tablet 180 mg PO DAILY 11/18/21 11/18/21 History fluticasone propionate 50 2 spray INTRANASAL DAILY 11/18/21 11/18/21 History mcg/actuation nasal spray,suspension (Flonase Allergy Relief) indomethacin 25 mg capsule 25 mg PO TID PRN 11/18/21 11/18/21 History isosorbide mononitrate 60 mg 60 mg PO DAILY 11/18/21 11/18/21 History tablet,extended release 24 hr losartan 50 mg tablet 50 mg PO DAILY 11/18/21 11/18/21 History nitroglycerin 0.4 mg sublingual 0.4 mg SUBLINGUAL .PRN/UD 11/18/21 11/18/21 History tablet omega-3 fatty acids 1,000 mg PO DAILY 11/18/21 11/18/21 History sertraline 100 mg tablet 200 mg PO QAM 11/18/21 11/18/21 History simvastatin 10 mg tablet 10 mg PO HS 11/18/21 11/18/21 History Allergies Allergy/AdvReac Type Severity Reaction Status Date / Time hydralazine Allergy Severe GI SYMPTOMS Verified 11/18/21 16:15 Past Med/Surg History Medical History Adjustment disorder Ambulatory dysfunction Cardiac pacemaker in situ CHB (complete heart block) Chronic sinusitis Dyslipidemia Gout History of nonmelanoma skin cancer HTN (hypertension) LAFB (left anterior fascicular block) Obesity Psoriasis RBBB Surgical History H/O cataract removal with insertion of prosthetic lens S/P cardiac pacemaker procedure S/P exploratory laparotomy Family History Father Coronary heart disease Sister Cerebral aneurysm Social History Smoking Status: Former smoker Tobacco Type: Smokeless Tobacco (Dip or Chew) Do You Dip or Chew Tobacco: Yes; Hx Alcohol Use: Yes Alcohol type: beer and hard liquor Alcohol Intake Frequency: 4 or More x per/Week Alcohol Intake Frequency Comment: nightly 1 beer and a couple of whiskys Hx Substance Use: No Preferred Language: Sami Communication Ability: Effective Director Regulatory Agency Required: No Beliefs That Will Affect Care: None marital status: Current Living Situation: Spouse Other Information That Helps Us Care for You: No Feels Safe at Home: Yes Safety Concerns: Feels Safe At This Time Assistive Devices: Cane and Walker Assistive Devices Comment: hearing aids at home - no longer uses. Review of Systems A total of 10 systems reviewed and were otherwise negative Physical Exam Vital Signs Vital Signs - 24 hr 11/18/21 12:25 11/18/21 12:50 11/18/21 12:59 Temperature 36.8 C Temperature Source Oral Pulse Rate 88 71 61 Pulse Rate [Apical] Pulse Rate from SpO2 Sensor 67 61 Respiratory Rate 20 Respiratory Effort / Characteristics Non-Labored Respiratory Depth Normal Blood Pressure 213/116 H 203/85 H Blood Pressure [Right Arm] Blood Pressure Mean 148 124 Blood Pressure Mean [Right Arm] Pulse Oximetry 98 94 96 Oxygen Delivery Method Room Air Sepsis Recent Fever Within 48 Hours No Sepsis New/Unexplained Change in Mental Status No Sepsis Action Taken by Nursing No Action Required 11/18/21 13:00 11/18/21 13:10 11/18/21 13:30 Temperature Temperature Source Pulse Rate 61 64 Pulse Rate [Apical] Pulse Rate from SpO2 Sensor 61 61 64 Respiratory Rate Respiratory Effort / Characteristics Respiratory Depth Blood Pressure 206/83 H Blood Pressure [Right Arm] Blood Pressure Mean 124 Blood Pressure Mean [Right Arm] Pulse Oximetry 96 96 94 Oxygen Delivery Method Sepsis Recent Fever Within 48 Hours Sepsis New/Unexplained Change in Mental Status Sepsis Action Taken by Nursing 11/18/21 13:31 11/18/21 13:40 11/18/21 13:50 Temperature Temperature Source Pulse Rate 63 62 63 Pulse Rate [Apical] Pulse Rate from SpO2 Sensor 63 62 63 Respiratory Rate 18 Respiratory Effort / Characteristics Respiratory Depth Blood Pressure 200/105 H Blood Pressure [Right Arm] Blood Pressure Mean 136 Blood Pressure Mean [Right Arm] Pulse Oximetry 95 94 96 Oxygen Delivery Method Sepsis Recent Fever Within 48 Hours Sepsis New/Unexplained Change in Mental Status Sepsis Action Taken by Nursing 11/18/21 14:00 11/18/21 14:14 11/18/21 14:15 Temperature Temperature Source Pulse Rate 60 63 Pulse Rate [Apical] Pulse Rate from SpO2 Sensor 60 63 63 Respiratory Rate Respiratory Effort / Characteristics Respiratory Depth Blood Pressure 228/92 H 183/101 H Blood Pressure [Right Arm] Blood Pressure Mean 137 128 Blood Pressure Mean [Right Arm] Pulse Oximetry 96 96 99 Oxygen Delivery Method Sepsis Recent Fever Within 48 Hours Sepsis New/Unexplained Change in Mental Status Sepsis Action Taken by Nursing 11/18/21 14:20 11/18/21 14:24 11/18/21 14:30 Temperature Temperature Source Pulse Rate 60 Pulse Rate [Apical] 60 Pulse Rate from SpO2 Sensor 60 60 Respiratory Rate 20 Respiratory Effort / Characteristics Respiratory Depth Blood Pressure Blood Pressure [Right Arm] 183/101 H Blood Pressure Mean Blood Pressure Mean [Right Arm] 128 Pulse Oximetry 97 97 97 Oxygen Delivery Method Room Air Sepsis Recent Fever Within 48 Hours Sepsis New/Unexplained Change in Mental Status Sepsis Action Taken by Nursing 11/18/21 14:40 11/18/21 14:50 11/18/21 15:00 Temperature Temperature Source Pulse Rate 60 60 60 Pulse Rate [Apical] Pulse Rate from SpO2 Sensor 60 60 60 Respiratory Rate Respiratory Effort / Characteristics Respiratory Depth Blood Pressure Blood Pressure [Right Arm] Blood Pressure Mean Blood Pressure Mean [Right Arm] Pulse Oximetry 95 95 95 Oxygen Delivery Method Sepsis Recent Fever Within 48 Hours Sepsis New/Unexplained Change in Mental Status Sepsis Action Taken by Nursing 11/18/21 15:01 11/18/21 15:10 11/18/21 15:20 Temperature Temperature Source Pulse Rate 60 60 60 Pulse Rate [Apical] Pulse Rate from SpO2 Sensor 60 60 60 Respiratory Rate Respiratory Effort / Characteristics Respiratory Depth Blood Pressure 221/110 H Blood Pressure [Right Arm] Blood Pressure Mean 147 Blood Pressure Mean [Right Arm] Pulse Oximetry 95 95 94 Oxygen Delivery Method Sepsis Recent Fever Within 48 Hours Sepsis New/Unexplained Change in Mental Status Sepsis Action Taken by Nursing 11/18/21 15:30 11/18/21 15:40 11/18/21 15:50 Temperature Temperature Source Pulse Rate 61 64 61 Pulse Rate [Apical] Pulse Rate from SpO2 Sensor Respiratory Rate Respiratory Effort / Characteristics Respiratory Depth Blood Pressure Blood Pressure [Right Arm] Blood Pressure Mean Blood Pressure Mean [Right Arm] Pulse Oximetry Oxygen Delivery Method Sepsis Recent Fever Within 48 Hours Sepsis New/Unexplained Change in Mental Status Sepsis Action Taken by Nursing 11/18/21 16:00 11/18/21 16:01 11/18/21 16:10 Temperature Temperature Source Pulse Rate 61 63 68 Pulse Rate [Apical] Pulse Rate from SpO2 Sensor Respiratory Rate Respiratory Effort / Characteristics Respiratory Depth Blood Pressure 236/63 H Blood Pressure [Right Arm] Blood Pressure Mean 120 Blood Pressure Mean [Right Arm] Pulse Oximetry Oxygen Delivery Method Sepsis Recent Fever Within 48 Hours Sepsis New/Unexplained Change in Mental Status Sepsis Action Taken by Nursing 11/18/21 16:11 11/18/21 16:20 11/18/21 16:30 Temperature Temperature Source Pulse Rate 62 62 68 Pulse Rate [Apical] Pulse Rate from SpO2 Sensor Respiratory Rate Respiratory Effort / Characteristics Respiratory Depth Blood Pressure 191/86 H Blood Pressure [Right Arm] Blood Pressure Mean 121 Blood Pressure Mean [Right Arm] Pulse Oximetry Oxygen Delivery Method Sepsis Recent Fever Within 48 Hours Sepsis New/Unexplained Change in Mental Status Sepsis Action Taken by Nursing 11/18/21 16:44 Temperature Temperature Source Pulse Rate 61 Pulse Rate [Apical] Pulse Rate from SpO2 Sensor Respiratory Rate Respiratory Effort / Characteristics Respiratory Depth Blood Pressure Blood Pressure [Right Arm] Blood Pressure Mean Blood Pressure Mean [Right Arm] Pulse Oximetry Oxygen Delivery Method Sepsis Recent Fever Within 48 Hours Sepsis New/Unexplained Change in Mental Status Sepsis Action Taken by Nursing VITALS: Vitals are noted on the nurse's note and reviewed by myself. GENERAL: This is a 89-year-old male, in no acute distress, well-developed well- nourished. SKIN: The skin was without rashes, erythema, edema, or bruising. HEAD: Normocephalic atraumatic. EARS: External auditory canals clear, tympanic membranes pearly renteria without erythema or effusion bilaterally. EYES: Pupils equal round and reactive to light and accommodation. Extraocular movements intact. MOUTH: Mucous membranes moist. NECK: Supple without nuchal rigidity. Cervical spine is nontender. HEART: Regular rate and rhythm without murmurs gallops or rubs. LUNGS: Clear to auscultation bilaterally without wheezes, rales or rhonchi. ABDOMEN: Positive bowel sounds x 4. Soft, nontender to palpation. MUSCULOSKELETAL: No obvious deformities. There is some mild, generalized tenderness to palpation of the right hip. NEURO: Patient was alert and oriented to person place and time. Distal sensation intact. Course Administered Medications Discontinued Medications Aspirin (Aspirin 81 Mg Ectab) 81 mg PO DAILY [facility] Stop: 12/19/21 08:59 Last Admin: 11/19/21 08:09 Dose: 81 mg Documented by: [id number] Enoxaparin Sodium (Enoxaparin Inj 40 Mg/0.4 Ml Syr) 40 mg SQ QAM [facility]ARR[facility] Stop: 12/19/21 08:59 Last Admin: 11/19/21 08:08 Dose: 40 mg Documented by: [id number] Felodipine (Felodipine 2.5 Mg Tabcr) 2.5 mg PO NOW [facility] Stop: 11/18/21 14:27 Last Admin: 11/18/21 14:45 Dose: 2.5 mg Documented by: [id number] Felodipine (Felodipine 2.5 Mg Tabcr) 2.5 mg PO DAILY [facility] Stop: 12/19/21 08:59 Last Admin: 11/19/21 08:08 Dose: 2.5 mg Documented by: [id number] Fexofenadine HCl (Fexofenadine Hcl 180 Mg Tab) 180 mg PO DAILY [facility] Stop: 12/19/21 08:59 Last Admin: 11/19/21 08:08 Dose: 180 mg Documented by: [id number] Fluticasone Propionate (Fluticasone Propionate Na Spr 16 Gm Btl) 2 sprays ROCIO DAILY [facility] Stop: 12/19/21 08:59 Last Admin: 11/19/21 08:09 Dose: 2 sprays Documented by: [id number] Folic Acid (Folic Acid 1 Mg Tab) 1 mg PO QAM [facility] Stop: 12/18/21 17:14 Last Admin: 11/19/21 08:09 Dose: 1 mg Documented by: [id number] Admin: 11/18/21 18:36 Dose: 1 mg Documented by: [id number] Ibuprofen (Ibuprofen 600 Mg Tab) 600 mg PO Q8H DARRYL Stop: 12/18/21 17:14 Last Admin: 11/19/21 09:02 Dose: 600 mg Documented by: [id number] Admin: 11/19/21 02:13 Dose: 600 mg Documented by: [id number] Admin: 11/18/21 18:36 Dose: 600 mg Documented by: [id number] Isosorbide Mononitrate (Isosorbide [place] Extended Rel 60 Mg Tabcr) 60 mg PO DAILY [facility] Stop: 12/19/21 08:59 Last Admin: 11/19/21 08:09 Dose: 60 mg Documented by: [id number] Labetalol HCl (Labetalol Hcl Iv 5 Mg/Ml 20ml) 10 mg IV NOW STA Stop: 11/18/21 16:16 Last Admin: 11/18/21 16:40 Dose: 10 mg Documented by: [id number] Cosigned by: [id number] Losartan Potassium (Losartan Potassium 50 Mg Tab) 50 mg PO NOW STA Stop: 11/18/21 14:27 Last Admin: 11/18/21 14:46 Dose: 50 mg Documented by: [id number] Losartan Potassium (Losartan Potassium 50 Mg Tab) 50 mg PO DAILY [facility] Stop: 12/19/21 08:59 Last Admin: 11/19/21 08:09 Dose: 50 mg Documented by: [id number] Nicotine (Nicotine 21 Mg/24 Hr Tdsy) 21 mg TD ONE STA Stop: 11/19/21 15:32 Last Admin: 11/19/21 15:58 Dose: 21 mg Documented by: [id number] Sertraline HCl (Sertraline Hcl 100 Mg Tablet) 200 mg PO QAM DARR[facility] Stop: 12/19/21 08:59 Last Admin: 11/19/21 08:09 Dose: 200 mg Documented by: [id number] Simvastatin (Simvastatin 10 Mg Tab) 10 mg PO HS [facility] Stop: 12/18/21 20:59 Last Admin: 11/18/21 19:58 Dose: 10 mg Documented by: [id number] Thiamine HCl (Thiamine Hcl 100 Mg Tab) 100 mg PO ONCE ONE Stop: 11/18/21 18:01 Last Admin: 11/18/21 18:37 Dose: 100 mg Documented by: [id number] Thiamine HCl (Thiamine Hcl 100 Mg Tab) 100 mg PO QAM DARRYL Stop: 12/19/21 08:59 Last Admin: 11/19/21 08:09 Dose: 100 mg Documented by: [id number] Vitamin D (Cholecalciferol 1,000 Units 25 Mcg Tab) 1,000 units PO DAILY D[facility] Stop: 12/19/21 08:59 Last Admin: 11/19/21 08:09 Dose: 1,000 units Documented by: [id number] Medical Decision Making Differential Diagnosis Fracture, dislocation, neurovascular compromise, compartment syndrome, soft tissue injury, as well as other pathologies. Home Medications Current Medication List: was personally reviewed by me Laboratory Data Attestation: I reviewed the patient's lab results. Result diagrams: 11/19/21 05:15 11/19/21 05:15 Lab Results 11/18/21 11/18/21 11/18/21 Range/Units 12:54 12:54 12:54 WBC 7.20 (4.8-10.8) K/uL RBC 4.80 (4.7-6.1) M/uL Hgb 16.7 (14.0-18.0) g/dL Hct 47.6 (42-52) % MCV 99.2 (80-100) fL MCH 34.8 H (25-34) pg MCHC 35.1 (32-36) g/dL RDW Std Deviation 48.9 H (36.4-46.3) fL RDW Coeff of [place]oyo 13.5 (11.5-14.5) % Plt Count 175 (130-400) K/uL MPV 11.5 H (7.4-10.4) fL Immature Gran % (Auto) 0.3 % Neut % (Auto) 57.8 % Lymph % (Auto) 31.3 % [place] % (Auto) 8.3 % Eos % (Auto) 1.7 % Baso % (Auto) 0.6 % Neut # (Auto) 4.17 (1.4-6.5) K/uL Lymph # (Auto) 2.25 (1.2-3.4) K/uL [place] # (Auto) 0.60 H (0.11-0.59) K/uL Eos # (Auto) 0.12 (0-0.5) K/uL Baso # (Auto) 0.04 (0-0.2) K/uL Immature Gran # (Auto) 0.02 (0.00-0.02) K/uL PT 10.8 (9.0-12.0) Seconds INR 1.0 (0.9-1.1) APTT 26.6 (21.0-31.0) Seconds PTT Ratio 1.0 Sodium 139 (136-145) mmol/L Potassium TNP Chloride 105 (98-107) mmol/L Carbon Dioxide 26 (21-32) mmol/L Anion Gap 8 (3-11) BUN 16 (6-23) mg/dl Creatinine 0.76 (0.6-1.4) mg/dl Est Cr Clr Drug Dosing Not Reportable Est GFR ( Amer) 96.4 ml/min Est GFR (Non-Af Amer) 83.2 ml/min BUN/Creatinine Ratio 21.1 H (10-20) Glucose 95 (70-99(Fasting)) mg/dl Calcium 9.6 (8.5-10.1) mg/dl Total Bilirubin 0.8 (0.2-1.0) mg/dl AST TNP ALT 14 (7-52) U/L Alkaline Phosphatase 78 (34-104) U/L Troponin I High Sens Total Protein 8.5 H (6.0-8.3) gm/dl Albumin 4.3 (3.4-5.0) gm/dl Globulin 4.2 H (2.5-4.0) gm/dl Albumin/Globulin Ratio 1.0 (0.9-2) Urine Color Urine Appearance (Clear) Urine pH (4.5-7.5) Ur Specific [place] (1.000-1.030) Urine Protein (Negative) Urine Glucose (UA) (Negative) Urine Ketones (Negative) Urine Blood (Negative) Urine Nitrite (Negative) Urine Bilirubin (Negative) Urine Urobilinogen (Negative) Ur Leukocyte Esterase (Negative) Urine WBC (Auto) (0-5) /hpf Urine RBC (Auto) (0-4) /hpf U Hyaline Cast (Auto) (0-5) /lpf U Epithel Cells (Auto) (0-5) /lpf Urine Bacteria (Auto) (Negative) SARS-CoV-2, RNA, NAAT (NEGATIVE) 11/18/21 11/18/21 11/18/21 Range/Units 13:50 14:00 14:20 WBC (4.8-10.8) K/uL RBC (4.7-6.1) M/uL Hgb (14.0-18.0) g/dL Hct (42-52) % MCV (80-100) fL MCH (25-34) pg MCHC (32-36) g/dL RDW Std Deviation (36.4-46.3) fL RDW Coeff of [place] (11.5-14.5) % Plt Count (130-400) K/uL MPV (7.4-10.4) fL Immature Gran % (Auto) % Neut % (Auto) % Lymph % (Auto) % [place] % (Auto) % Eos % (Auto) % Baso % (Auto) % Neut # (Auto) (1.4-6.5) K/uL Lymph # (Auto) (1.2-3.4) K/uL [place] # (Auto) (0.11-0.59) K/uL Eos # (Auto) (0-0.5) K/uL Baso # (Auto) (0-0.2) K/uL Immature Gran # (Auto) (0.00-0.02) K/uL PT (9.0-12.0) Seconds INR (0.9-1.1) APTT (21.0-31.0) Seconds PTT Ratio Sodium (136-145) mmol/L Potassium Cancelled Chloride (98-107) mmol/L Carbon Dioxide (21-32) mmol/L Anion Gap (3-11) BUN (6-23) mg/dl Creatinine (0.6-1.4) mg/dl Est Cr Clr Drug Dosing Est GFR ( Amer) ml/min Est GFR (Non-Af Amer) ml/min BUN/Creatinine Ratio (10-20) Glucose (70-99(Fasting)) mg/dl Calcium (8.5-10.1) mg/dl Total Bilirubin (0.2-1.0) mg/dl AST Cancelled ALT (7-52) U/L Alkaline Phosphatase (34-104) U/L Troponin I High Sens Cancelled Total Protein (6.0-8.3) gm/dl Albumin (3.4-5.0) gm/dl Globulin (2.5-4.0) gm/dl Albumin/Globulin Ratio (0.9-2) Urine Color Yellow Urine Appearance Clear (Clear) Urine pH 6.5 (4.5-7.5) Ur Specific [place] 1.016 (1.000-1.030) Urine Protein Trace H (Negative) Urine Glucose (UA) Negative (Negative) Urine Ketones Trace H (Negative) Urine Blood 1+ H (Negative) Urine Nitrite Negative (Negative) Urine Bilirubin Negative (Negative) Urine Urobilinogen Negative (Negative) Ur Leukocyte Esterase Negative (Negative) Urine WBC (Auto) 1-5 (0-5) /hpf Urine RBC (Auto) 5-10 H (0-4) /hpf U Hyaline Cast (Auto) 0 (0-5) /lpf U Epithel Cells (Auto) 10-20 H (0-5) /lpf Urine Bacteria (Auto) Negative (Negative) SARS-CoV-2, RNA, NAAT NEGATIVE (NEGATIVE) Imaging Data Attestation: I personally reviewed and interpreted this imaging study as follows: Radiologist's Impression: Head CT 11/18/21 12:48 CT head/brain wo con CLINICAL HISTORY: fall Technique: Contiguous axial CT images of the head were acquired from the base of the skull to the vertex without intravenous contrast administration. Images were viewed in brain, subdural and bone windows. Automated dose lowering techniques and/or adjustment according to patient size were utilized for this exam. Comparison: None available at the time of this dictation. Findings: Areas of decreased attenuation are present in the periventricular and subcortical white matter bilaterally consistent with small vessel ischemic dis ease. Generalized cerebral atrophy with commensurate enlargement of the ventricles, sulci, and cisterns is also present. There is no acute intracranial hemorrhage or evidence of acute territorial infarction. No shift of the midline structures, mass effect, or extra-axial abnormalities are shown. At herosclerotic calcifications are present in the intracranial segments of the internal carotid arteries. Imaged portions of the paranasal sinuses and mastoid air cells are clear. The orbits appear normal. There are no acute fractures of the calvaria or scalp swelling. Impression: No acute intracranial hemorrhage, no evidence of acute territorial infarction or other acute intracranial disease process. ACT 112: Negative or not required by law. Electronically signed by: Noel Merritt M.D. 11/18/2021 1:40 PM Hip X-Ray 11/18/21 12:48 XR hip RT min 2V CLINICAL HISTORY: right hip pain, fall TECHNIQUE: 2 views of the right hip and single frontal view of the pelvis were obtained. Comparison: Comparison is made to pelvic radiograph 11/05/2008 FINDINGS: There is no evidence of an acute fracture. Degenerative changes are seen in the hip joint. Vascular calcifications are noted. IMPRESSION: No evidence of acute osseous injury. ACT 112: Negative or not required by law. Electronically signed by: Noel Merritt M.D. 11/18/2021 1:[address] 11/18/21 13:45 CT hip RT wo con, CT lumbar spine wo con CLINICAL HISTORY: right hip pain, ambulatory dysfunction TECHNIQUE: Multidetector row helical CT of the right knee right hip and lumbar spine was performed without intravenous contrast. Coronal and sagittal reformations were obtained. Automated dose lowering techniques and/or adjustment according to patient size were utilized for this examination. CT DOSE: 1155.11 mGy.cm Comparison: None available at the time of this dictation. FINDINGS: No acute fracture is seen. Multilevel degenerative changes are seen in the spine with loss of height at the cement arthroplasty noted in L1 and L2. There is leakage of cement about the L1 arthroplasty with extrusion into the adjacent disc spaces. Degenerative changes are seen in the hip joint. No joint effusion is seen. Extensive atherosclerotic changes are seen. IMPRESSION: No evidence of acute fracture or dislocation. ACT 112: Negative or not required by law. Electronically signed by: Noel Merritt M.D. 11/18/2021 2:[address] 11/18/21 13:45 CT hip RT wo con, CT lumbar spine wo con CLINICAL HISTORY: right hip pain, ambulatory dysfunction TECHNIQUE: Multidetector row helical CT of the right knee right hip and lumbar spine was performed without intravenous contrast. Coronal and sagittal reformations were obtained. Automated dose lowering techniques and/or adjustment according to patient size were utilized for this examination. CT DOSE: 1155.11 mGy.cm Comparison: None available at the time of this dictation. FINDINGS: No acute fracture is seen. Multilevel degenerative changes are seen in the spine with loss of height at the cement arthroplasty noted in L1 and L2. There is l eakage of cement about the L1 arthroplasty with extrusion into the adjacent disc spaces. Degenerative changes are seen in the hip joint. No joint effusion is seen. Extensive atherosclerotic changes are seen. IMPRESSION: No evidence of acute fracture or dislocation. ACT 112: Negative or not required by law. Electronically signed by: Noel Merritt M.D. 11/18/2021 2:34 PM MDM Narrative This patient is an 86-year-old male who presents to the emergency department for evaluation of right hip pain. X-rays did not show any fractures. CT was then performed which also did not show any fractures. Ambulatory trial was performed, patient was unable to stand at bedside or walk at all. He does not have any home health or other help at home. His is overwhelmed with his care and unable to lift him. I think he would benefit from placement at a rehab facility or at least some further home health services. Case was discussed with the [facility] hospitalist who agreed to evaluate the patient for further care. Impression & Plan Acute right hip pain, Ambulatory dysfunction Discharge Plan Visit Data Chief Complaint: Hip Pain Stated Complaint: fell days ago, hip pain ED Provider: Amando Lugo ED Midlevel Provider: Agata Cat Discharge Problem: Acute right hip pain, Ambulatory dysfunction Patient Disposition: Admitted As Inpatient Condition: Good Discharge Instructions Interventions: ED Discharge Assessment Last Done: 11/18/21 16:50
--- NOTE | 2021-11-18 17:06 | XRay Report ---
XR knee RT 1 or 2V routine CLINICAL HISTORY: traumatic knee pain after recurrent falls TECHNIQUE: 2 views of the right knee were obtained. Comparison: None available at the time of this dictation. FINDINGS: There is no evidence of an acute fracture. Degenerative changes are seen in the knee joint. No joint effusion is seen. Vascular calcifications are noted. IMPRESSION: Degenerative changes without evidence of acute injury. ACT 112: Negative or not required by law. Electronically signed by: Noel Merritt M.D. 11/18/2021 5:04 PM
[2021-11-18] MEDS ORDERED: POLYETHYLENE (MIRALAX) 17 GM PACK PO PRN (17:15)
[2021-11-18] MEDS ORDERED: LORazepam 1 MG TAB PO PRN (17:15)
[2021-11-18] MEDS ORDERED: ACETAMINOPHEN 325 MG TAB PO PRN (17:15)
[2021-11-18] MEDS ORDERED: THIAMINE HCL 100 MG TAB PO ONE (18:00)
[2021-11-18] MEDS: FOLIC ACID 1 MG TAB PO SCH (18:36)
[2021-11-18] MEDS: IBUPROFEN 600 MG TAB PO SCH (18:36)
[2021-11-18] MEDS ORDERED: SIMVASTATIN 10 MG TAB PO SCH (21:00)
[2021-11-19] MEDS: IBUPROFEN 600 MG TAB PO SCH ×2 (02:13→09:02)
[2021-11-19 06:42] LABS: Hematocrit (blood only) 42.8 % (42-52); Hemoglobin 14.4 g/dL (14.0-18.0); Mean Corpuscular Hemoglobin 33.5 pg (25-34); Mean Corpuscular Hgb Conc 33.6 g/dL (32-36); Mean Corpuscular Volume 99.5 fL (80-100); Mean Platelet Volume 11.8 fL (7.4-10.4); Platelet Count 177 K/uL (130-400); RDW Coefficient of Variation 13.7 % (11.5-14.5); RDW Standard Deviation 49.6 fL (36.4-46.3); White Blood Count 7.48 K/uL (4.8-10.8)
[2021-11-19 06:59] LABS: BUN Creatinine Ratio 21.4 (10-20); Calcium 8.7 mg/dl (8.5-10.1); Creatinine Clr Calc Pharmacy 71.9 ml/min; Est GFR (African American) 92.5 ml/min; Est GFR (Non-African American) 79.8 ml/min; Potassium 3.6 mmol/L (3.5-5.1)
[2021-11-19] MEDS: FOLIC ACID 1 MG TAB PO SCH (08:09)
[2021-11-19] MEDS ORDERED: ISOSORBIDE MONO EXTENDED REL 60 MG TABCR PO SCH (09:00)
[2021-11-19] MEDS ORDERED: FLUTICASONE PROPIONATE NA SPR 16 GM BTL NAE SCH (09:00)
[2021-11-19] MEDS ORDERED: FELODIPINE 2.5 MG TABCR PO SCH (09:00)
[2021-11-19] MEDS ORDERED: ENOXAPARIN INJ 40 MG/0.4 ML SYR SQ SCH (09:00)
[2021-11-19] MEDS ORDERED: LOSARTAN POTASSIUM 50 MG TAB PO SCH (09:00)
[2021-11-19] MEDS ORDERED: THIAMINE HCL 100 MG TAB PO SCH (09:00)
[2021-11-19] MEDS ORDERED: FEXOFENADINE HCL 180 MG TAB PO SCH (09:00)
[2021-11-19] MEDS ORDERED: SERTRALINE HCL 100 MG TABLET PO SCH (09:00)
[2021-11-19] MEDS ORDERED: CHOLECALCIFEROL 1,000 UNITS 25 MCG TAB PO SCH (09:00)
[2021-11-19] MEDS ORDERED: ASPIRIN 81 MG ECTAB PO SCH (09:00)
[2021-11-19] MEDS ORDERED: NICOTINE 21 MG/24 HR TDSY TD STA (15:31)
--- NOTE | 2021-11-19 16:05 | Discharge Summary ---
Date of Service November 19, 2021 Admission HPI Per Admitting Provider 86 yo M presents with recurrent falls at home and subsequent R hip pain. He is unable to stand or walk today. R hip CT and L spine xrays reveal no acute fracture. Has been falling recurrently for two years intermittently Last night was trying to get up and go to the bathroom, but couldn't move right leg and fell as a result. Mechanical fall reported with no loss of consciousness. Right leg started with more pain and can't use it two weeks ago when he fell twice. That seemed to be when his functional status got worse. has been caring for him but is overwhelmed with care needs. Hasn't been able to get around much in the last two weeks. Has been taking ibuprofen for pain. 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 Some TTP now on the posterior upper calf area that is improved. No gross focal deficits. SKIN: warm and dry NEUROLOGIC: CN 2-12 grossly intact, no sensory deficit, normal cognition, normal speech, no tremor PSYCHIATRIC: alert cooperative and oriented to person, place and time. Euthymic mood, makes good eye contact, language grossly intact, recent and remote memory grossly intact. Discharge Data Allergies Allergy/AdvReac Type Severity Reaction Status Date / Time hydralazine Allergy Severe GI SYMPTOMS Verified 11/18/21 16:15 Consultations 11/18/21 15:10 ED Decision to Admit Stat Ordered Studies 11/18/21 12:48 CT head/brain wo con Stat 11/18/21 13:45 CT hip RT wo con Stat CT lumbar spine wo con Stat Hospital Course (1) Acute right hip pain: Sequelae of falling and ambulatory dysfunction. No evidence of fracture. PT/OT. Ibuprofen and ICE. CT l-spine and right hip with no acute fracture. There is some leakage of cement from prior procedure around the disc space. There is no severe back pain and no neurologic deficit at this time. Result was shared with patient and his son/ and follow-up outpatient with ortho spine may be indicated if symptoms develop. PT/OT evaluated and SNF was recommended by OT but patient declined. He was able to stand and ambulate with a walker with physical therapy who recommended Home Health which was ordered at discharge. He will continue conservative management of pain with alternating Tylenol and Motrin and use ice. (2) Acute pain of right knee: No fracture on xray. Appears improved overnight per patient. Cont conservative pain management at home. (3) Hypertensive urgency: Situation/pain/alcohol use all likely contributing. Pt has a prior severe reaction to hydralazine. Gave labetalol in ER with resulting BP at 630p and rechecked again at 8:30p 153/63. Cont current medical therapy and monitor on telemetry. He did well overnight with BP at discharge reading 113/71. (4) Recurrent falls: Uncertain exact etiology, likely multifactorial including high daily intake of alcohol, multiple medical problems, age-related decline and general physical deconditioning as a sequelae of previous falls. Home health ordered for home and close follow-up with PCP recommended. (5) Alcohol abuse: Daily drinker of whisky and beer. No current evidence of withdrawal. Monitor closely. Daily thiamine and folate given during admission. (6) Tobacco use: Total Time Total Time Spent Total Time Spent (In Minutes): 60 Discharge Plan Discharge Items Patient Disposition: Home - Home Health Services Reason For Visit: HYPERTENSIVE URGENCY,RECURRENT FALLS,UNABLE TO WAL Discharge Diagnosis: Acute right hip/knee pain Recurrent falls Hypertensive urgency Condition on Discharge: Good Activity: Resume your previous activity Non-emergency contact: Primary Care Provider Call non-emergency contact if: you have any medication questions, your symptoms worsen, your pain is not controlled, your pain is worsening, your pain is unusual for you and your pain is concerning for you Follow-up/Referrals: Huy Wong DO [Primary Care Provider] - Diet: Regular Addtl Attending Provider Instructions: Please continue all medications as instructed on discharge list below. It is recommended that you have Home Health for physical and occupational therapy. If this is not set up prior to discharge today, you should either be contacted by someone from the Case Management dept at [facility] after the holiday weekend, or you can have this set up through your primary care provider. It is fine to alternate Tylenol and Ibuprofen for pain control. Please use ice to the areas of pain at least three times daily. 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 If back pain returns or further issues develop, you may consider outpatient evaluation by your spine surgeon. It was a pleasure taking care of you! Please call if you have any questions or problems. You can reach a [facility] hospitalist on duty at [facility] 24 hours a day by calling [phone]. Take care of yourself. Brianna Augustine DO [facility] Pending Studies at Discharge: No Stand-Alone Forms: My [facility] Medications and DC Order Prescriptions: Continued losartan 50 mg tablet 50 mg PO DAILY RF: 0 fexofenadine 180 mg Tablet 180 mg PO DAILY RF: 0 isosorbide mononitrate 60 mg tablet extended release 24 hr 60 mg PO DAILY RF: 0 nitroglycerin 0.4 mg tablet, sublingual 0.4 mg sublingual .PRN/UD RF: 0 aspirin [Aspir-Low] 81 mg Tablet,Delayed Release (Dr/Ec) 81 mg PO DAILY RF: 0 felodipine 2.5 mg tablet extended release 24 hr 2.5 mg PO DAILY RF: 0 Fish Oil Concentrate Capsule 1,000 mg PO DAILY RF: 0 fluticasone propionate [Flonase Allergy Relief] 50 mcg/actuation [place],Suspension 2 spray INTRANASAL DAILY RF: 0 indomethacin 25 mg Capsule 25 mg PO TID PRN (Reason: Pain) RF: 0 sertraline 100 mg tablet 200 mg PO QAM RF: 0 simvastatin 10 mg tablet 10 mg PO HS RF: 0 cholecalciferol (vitamin D3) 25 mcg (1,000 unit) Capsule 25 mcg PO DAILY RF: 0 Discharge Orders: Discharge Order (Routine); Ordered 11/19/21 Ordered By: Brianna Augustine Admission Data Admit Date/Time: 11/18/21 15:17 Attending Provider: Brianna Augustine Admit Provider: Brianna Augustine Primary Care Provider: Huy Wong Other Providers: Brianna Augustine
--- NOTE | 2021-11-20 22:35 | Electrocardiogram Report ---
Test Reason : Blood Pressure : / mmHG Vent. Rate : 061 BPM Atrial Rate : 061 BPM P-R Int : 236 ms QRS Dur : 170 ms QT Int : 448 ms P-R-T Axes : 000 -56 083 degrees QTc Int : 450 ms Poor data quality, interpretation may be adversely affected AV dual-paced rhythm with prolonged AV conduction Abnormal ECG When compared with ECG of 02-DEC-2016 09:15, Vent. rate has decreased BY 14 BPM Confirmed by Iain France ([id number]) on 11/20/2021 10:34:28 PM Referred By: REFERRED SELF Confirmed By:Iain France
== END 2021-11-19 17:13 | disposition home health service (06) ==
LOC: 2N 12:38 → ED 12:38 → 2N 16:50